=== PATIENT | female | born 1995 | race Caucasian/White ===

== ENCOUNTER 2023-12-18 20:28 | Outpatient (REF) | payer OTHER, SELFPAY ==
[2023-12-24 16:11] LABS: Age Gdln ACOG Testing Note (.); IGP, rfx Aptima HPV ASCU Note (.)
== END 2023-12-18 20:29 | disposition home or self-care (01) ==
LOC: LAB 20:28
PROVIDERS: Visit Provider Obstetrics & Gynecology
DX: Z01.419 Encounter for gynecological examination (general) (routine) without abnormal findings (principal)
CPT/HCPCS: G0145

== ENCOUNTER 2024-07-10 13:22 | Outpatient (RCR) | payer OTHER, SELFPAY ==
[2024-07-10 14:41] LABS: HCG Quantitative <1 mIU/mL
== END 2024-08-04 10:42 | disposition home or self-care (01) ==
LOC: LAB 13:22
PROVIDERS: Visit Provider Obstetrics & Gynecology
DX: Z32.01 Encounter for pregnancy test, result positive (principal); N92.6 Irregular menstruation, unspecified
CPT/HCPCS: 36415; 84702

== ENCOUNTER 2024-09-01 09:26 | Emergency (ER) | payer OTHER, SELFPAY ==
[2024-09-01 09:31] VITALS: BP 121/83; PULSE 92; O2SAT 96; BMI 32.4
[2024-09-01 09:49] VITALS: TEMP 36.9
--- NOTE | 2024-09-01 09:51 | ED_ITS ---
HPI - URI/Sore Throat General Chief Complaint: Upper Respiratory Infection Stated Complaint: fever, nausea/vomiting Time Seen by Provider: 09/01/24 09:41 Source: patient Limitations: no limitations History of Present Illness HPI Narrative: 28-year-old female presents to the emergency department for 5-day history of cough and congestion. Other family members are not ill. She did not have an influenza vaccination this year. She is not sure when her last period was, she thinks she might be late. She is also had some nausea. Related Data Home Medications ?Medication ?Instructions ?Recorded ?Confirmed metformin 500 mg tablet 500 mg PO DAILY 09/01/24 09/01/24 Allergies Allergy/AdvReac Type Severity Reaction Status Date / Time No Known Drug Allergies Allergy Verified 09/01/24 09:35 Review of Systems ROS Narrative A ten point review of systems is negative except as noted above. PFSH PFSH Social History Little interest or pleasure in doing things: not at all Feeling down, depressed, or hopeless: not at all Exam Narrative Exam Narrative: Nurses note and vital signs reviewed and patient is not hypoxic. General: The patient appears well and in no apparent distress. Patient is resting comfortably on cart. Skin: Warm, dry, no pallor noted. There is no rash noted. Head: Normocephalic, atraumatic Eye: Normal conjunctiva, no drainage Ears, Nose, Mouth, and Throat: oral mucosa is moist. Nares patent. Cardiovascular: Regular Rate and Rhythm Respiratory: Patient is in no distress, no accessory muscle use, lungs are clear to auscultation, no wheezing, rales or rhonchi Back: non-tender, no CVA tenderness bilaterally to percussion. GI: Soft and nontender Musculoskeletal: The patient has no evidence of calf tenderness, no pitting edema, symmetrical pulses noted bilaterally Neurological: A&O, normal speech Psychiatric: Cooperative Constitutional Vital Signs, click to edit/add: Last Vital Signs Temp 98.5 F 09/01/24 09:49 Pulse 92 H 09/01/24 09:31 Resp 16 09/01/24 09:31 BP 121/83 09/01/24 09:31 Pulse Ox 96 09/01/24 09:31 O2 Del Method Room Air 09/01/24 09:31 Course Vital Signs Vital signs: Vital Signs Pulse Rate 92 H 09/01/24 09:31 Respiratory Rate 16 09/01/24 09:31 Blood Pressure 121/83 09/01/24 09:31 Pulse Oximetry 96 09/01/24 09:31 Oxygen Delivery Method Room Air 09/01/24 09:31 Temperature 98.5 F 09/01/24 09:49 Pulse Rate 92 H 09/01/24 09:31 Respiratory Rate 16 09/01/24 09:31 Blood Pressure 121/83 09/01/24 09:31 Pulse Oximetry 96 09/01/24 09:31 Oxygen Delivery Method Room Air 09/01/24 09:31 MDM - URI/Sore Throat MDM Narrative Medical decision making narrative: COVID and influenza tests are negative. She is not and there is no evidence of UTI. My clinical impression is that she has a viral illness. Treatment diagnosis and follow-up were discussed with the patient. Lab Data Attestation: I reviewed the patient's lab results. Labs: Lab Results 09/01/24 09/01/24 Range/Units 09:42 10:05 Urine Color Yellow (YELLOW) Urine Clarity Clear (CLEAR) Urine pH 6.0 (5.0-9.0) Ur Specific [place] 1.020 (1.005-1.025) Urine Protein 100 A (NEG/TRACE) mg/dL Urine Glucose (UA) Negative (NEGATIVE) mg/dL Urine Ketones Trace A (NEGATIVE) mg/dL Urine Occult Blood Trace-i (NEGATIVE) Urine Nitrite Negative (NEGATIVE) Urine Bilirubin Negative (NEGATIVE) Urine Urobilinogen 0.2 (0.2-1.0) EU/dL Ur Leukocyte Esterase Negative (NEGATIVE) Urine RBC 0-2 (0-2) #/HPF Urine WBC None seen (NONE SEEN) #/HPF Ur Squamous Epith Cells Moderate A (NONE/RARE) #/LPF Urine Crystals None seen (None Seen) #/HPF Urine Bacteria Small A (NONE SEEN) #/HPF Urine Casts None seen (NONE SEEN) #/LPF Urine Mucus Moderate A (NONE SEEN) Ur Culture Indicated? Yes Urine HCG, Qual Negative (NEGATIVE) Influenza Type A Ag Negative Influenza Type B Ag Negative SARS-CoV-2 Ag (CV2AG) Negative (NEGATIVE) Discharge Plan Discharge Chief Complaint: Upper Respiratory Infection Clinical Impression: Viral URI Patient Disposition: Home, Self-Care Time of Disposition Decision: 10:39 Condition: Good Mode of Transportation: Private Vehicle Prescriptions / Home Meds: No Action metformin 500 mg tablet 500 mg PO DAILY Print Language: Lithuanian Instructions: Upper Respiratory Infection (ED) Referrals: Physician,Non-Staff, MD [Primary Care Provider] - 1 week
--- OUTSIDE RECORDS SUMMARY | 2024-09-01 09:59 | XMS_ITS | CCD ---
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 Operator Name Role Phone HUMBERTO MILLAN Unavailable Unavailable HUMBERTO MILLAN Unavailable Unavailable CASH, DR WALTER Admitting Unavailable CASH, DR WALTER Attending Unavailable MISC, DR OGDEN Primary Care Unavailable CASH, DR WALTER Consulting Unavailable CASH, DR WALTER Admitting Unavailable CASH, DR WALTER Attending Unavailable MISC, DR OGDEN Primary Care Unavailable CASH, DR WALTER Consulting Unavailable CASH, DR WALTER Admitting Unavailable CASH, DR WALTER Attending Unavailable MISC, DR OGDEN Primary Care Unavailable CASH, DR WALTER Consulting Unavailable ZIEBER, DR ZHENG Colón Consulting Unavailable BUNTING, DR REN Admitting Unavailable BUNTING, DR REN Attending Unavailable MISC, DR OGDEN Primary Care Unavailable BUNTING, DR REN Consulting Unavailable Ban Ontiveros Unavailable JOSE ANGEL MORTENSEN Attending Unavailable ONEALASHU Attending Unavailable Mikal Bain Primary Care Provider [phone] Medications Current Medications Medication Drug Class(es) Dates Sig (Normalized) Sig (Original) metFORMIN hydrochloride 500 mg oral tablet (1 source) Biguanide Start: 06-29-20 24 End: 09-27-19 25 take 1 tablet by mouth at mealtime metFORMIN (Glucophage) 500 MG tablet Indications: Encounter for weight management Take 1 tablet (500 mg) by mouth in the morning. Take with meals. 30 tablet 2 06/29/2024 09/27/2024 Active methylPREDNISolone 4 mg oral tablet (1 source) Corticosteroid Start: 08-18-19 methylPREDNISolone 4 MG as directed Orally Once a day for 6 days Aug, Active phentermine hydrochloride 37.5 mg oral tablet (1 source) Sympathomimetic Amine Anorectic Start: 03-23-20 take 1 tablet by mouth before mealtime phentermine (Adipex-P) 37.5 MG tablet Indications: Encounter for weight management Take 1 tablet (37.5 mg) by mouth in the morning. Take before meals. 30 tablet 03/23/2024 Active valACYclovir 500 mg oral tablet (1 source) Herpesvirus Nucleoside Analog DNA Polymerase Inhibitor, Herpes Simplex Virus Nucleoside Analog DNA Polymerase Inhibitor, Herpes Zoster Virus Nucleoside Analog DNA Polymerase Inhibitor Start: 06-29-20 take 1 tablet by mouth once daily valACYclovir (Valtrex) 500 MG tablet Indications: Herpesviral infection Take 1 tablet (500 mg) by mouth Daily 30 tablet 06/29/2024 Active Problems Active Problems Problem Classification Problem Date Documented Date Episodic/Chronic Hypertension complicating ; childbirth and the puerperium (1 source) Unspecified maternal hypertension, third trimester; Translations: [Unspecified maternal hypertension, third trimester] Onset: 01-25-2017 Chronic Immunizations and screening for infectious disease (2 sources) Encounter for screening for human papillomavirus (HPV); Translations: [Contact with and (suspected) exposure to other viral communicable diseases] Onset: 10-10-2021 Episodic Malaise and fatigue (4 sources) Other fatigue; Translations: [OTHER FATIGUE] Onset: 09-08-2022 Episodic Menstrual disorders (4 sources) Irregular menstruation, unspecified; Translations: [IRREGULAR MENSTRUATION UNSPECIFIED] Onset: 04-19-2022 Chronic Other aftercare (1 source) Other longterm (current) drug therapy; Translations: [OTH SHELTER CURRENT DRUG THERAPY] Onset: 09-09-2022 Episodic Other upper respiratory infections (3 sources) Acute pharyngitis, unspecified; Translations: [Acute pharyngitis due to other specified organisms] Onset: 09-09-2022 Episodic Unclassified (1 source) 32 weeks gestation of ; Translations: [32 weeks gestation of ] Onset: 01-25-2017 Unclassified (4 sources) Unspecified lump in the right breast, overlapping quadrants; Translations: [UNS LUMP RT BREAST OVRLPNG QUADRNTS] Onset: 10-20-2021 Past or Other Problems Problem Classification Problem Date Documented Da te Episodic/Chronic Other screening for suspected conditions (not mental disorders or infectious disease) (4 sources) Encounter for screening for malignant neoplasm of cervix; Translations: [ENC SCREENING MALIG NEOPLASM CERV] Onset: 10-09-2021 Episodic Results Test Name Value Interpretation Reference Range Facility [facility] PREG QUANT HCGon 024 HCG QUANTITATIVE <1 mIU/mL [facility] Comment on above: 5-50 0.2-1 WEEK 50-500 1-2 WEEKS 100-5,000 2-3 WEEKS 500-10,000 3-4 WEEKS 1,000-50,000 4-5 WEEKS 10,000-100,000 5-6 WEEKS 15,000-200,000 6-8 WEEKS 10,000-100,000 2-3 MONTHS [facility] CBC AUTO DIFFon 09-08-2022 BASO # 0.0 103/ul Normal 0.0-0.1 [facility] Comment on above: Performed By: #### C BC #### [facility] [address] [address] [address] Sigifredo Valdez Basophils/100 WBC (Bld) 0.4 % Normal 0.2-2.0 [facility] Comment on above: Performed By: #### C BC #### [facility] [address] [place] [address] Dr. Sigifredo Valdez EO # 0.2 103/ul Normal 0.0-0.7 [facility] Comment on above: Performed By: #### C BC #### [facility] [address] [address] [address] Sigifredo Valdez Eosinophils/100 WBC (Bld) 3.1 % Normal 0.9-7.0 [facility] Comment on above: Performed By: #### C BC #### [facility] [address] [address] [address] Sigifredo Valdez Erythrocyte distribution width (RBC) [Ratio] 13.2 % Normal 11.0-15.0 [facility] Comment on above: Performed By: #### C BC #### [facility] [address] [place] [address] Dr. Sigifredo Valdez Hematocrit (Bld) [Volume fraction] 44.8 % Normal 36.0-48.0 [facility] Comment on above: Performed By: #### C BC #### [facility] [address] [place] [address] Dr. Sigifredo Valdez Hemoglobin (Bld) [Mass/Vol] 14.0 g/dL Normal 12.0-16.0 [facility] Comment on above: Performed By: #### C BC #### [facility] [address] [place] [address] Dr. Sigifredo Valdez IG # 0.03 10e3/ul Normal 0.00-0.03 [facility] Comment on above: Performed By: #### C BC #### [facility] [address] [place] [address] Dr. Sigifredo Valdez IG % 0.4 % Normal 0.0-0.5 [facility] Comment on above: Performed By: #### C BC #### [facility] [address] [place] [address] Dr. Sigifredo Valdez LYMPH # 2.3 103/ul Normal 1.2-3.8 [facility] Comment on above: Performed By: #### C BC #### [facility] [address] [place] [address] Dr. Sigifredo Valdez Lymphocytes/100 WBC (Bld) 31.6 % Normal 20.5-60.0 [facility] Comment on above: Performed By: #### C BC #### [facility] [address] [place] [address] Dr. Sigifredo Valdez MANUAL DIFF REQ NO Normal [facility] Comment on above: Performed By: #### C BC #### [facility] [address] [place] [address] Dr. Sigifredo Valdez MCH (RBC) [Entitic mass] 27.1 pg Normal 26.7-34.0 [facility] Comment on above: Performed By: #### C BC #### [facility] [address] [place] [address] Dr. Sigifredo Valdez MCHC (RBC) [Mass/Vol] 31.3 g/dL Normal 29.9-35.2 [facility] Comment on above: Performed By: #### C BC #### [facility] [address] [place] [address] Dr. Sigifredo Valdez MCV (RBC) [Entitic vol] 86.7 fL Normal 81.0-99.0 [facility] Comment on above: Performed By: #### C BC #### [facility] [address] [place] [address] Dr. Sigifredo Valdez MONO # 0.6 103/ul Normal 0.3-0.8 [facility] Comment on above: Performed By: #### C BC #### [facility] [address] [place] [address] Dr. Sigifredo Valdez Monocytes/100 WBC (Bld) 7.7 % Normal 1.7-12.0 [facility] Comment on above: Performed By: #### C BC #### [facility] [address] [place] [address] Dr. Sigifredo Valdez NEUT # 4.1 103/ul Normal 1.4-6.5 [facility] Comment on above: Performed By: #### C BC #### [facility] [address] [place] [address] Dr. Sigifredo Valdez Neutrophils/100 WBC (Bld) 56.8 % Normal 43.0-75.0 [facility] Comment on above: Performed By: #### C BC #### [facility] [address] [place] [address] Dr. Sigifredo Valdez Platelet mean volume (Bld) [Entitic vol] 9.0 fL Critically low 9.5-13.5 [facility] Comment on above: Performed By: #### C BC #### [facility] [address] [place] [address] Dr. Sigifredo Valdez PLT 400 103/ul Normal 150-450 [facility] Comment on above: Performed By: #### C BC #### [facility] [address] [place] [address] Dr. Sigifredo Valdez RBC 5.17 106/ul Normal 4.20-5.40 [facility] Comment on above: Performed By: #### C BC #### [facility] [address] [place] [address] Dr. Sigifredo Valdez WBC 7.1 103/ul Normal 4.0-11.0 [facility] Comment on above: Performed By: #### C BC #### [facility] [address] [place] [address] Dr. Sigifredo Valdez FREE T4on 09-08-2022 Free T4 [Mass/Vol] 1.12 ng/dL Normal 0.76-1.46 [facility] Comment on above: Performed By: #### F T4 #### [facility] [address] [place] [address] Dr. Sigifredo Valdez GLYCOHEMOGLOBIN A1Con 2022 ADA RECOMMENDATION SEE BELOW Normal [facility] Comment on above: Result Comment: ADA RECOMMENDED LIMIT 4.0 - 6.0 ADA THERAPEUTIC TARGET < 7.0 ACTION SUGGESTED > 7.0 Performed By: #### A 1C #### [facility] [address] [place] [address] Dr. Sigifredo Valdez Glucose [Mass/Vol] 103 mg/dL Normal [facility] Comment on above: Performed By: #### A 1C #### [facility] [address] [place] [address] Dr. Sigifredo Valdez HbA1c (Bld) [Mass fraction] 5.2 % Normal 4.5-6.2 [facility] Comment on above: Performed By: #### A 1C #### [facility] [address] [place] [address] Dr. Sigifredo Valdez MONOon 09-08-2022 Monocytes (Bld) [#/Vol] Negative Normal NEGATIVE [facility] Comment on above: Performed By: #### M JAME #### [facility] [address] [place] [address] Dr. Sigifredo Valdez PROF 14(COMP METB)on 023 Albumin [Mass/Vol] 3.4 g/dL Normal 3.4-5.0 [facility] Comment on above: Performed By: #### T SH, CMP #### [facility] [address] [place] [address] Dr. Sigifredo Valdez Albumin/Globulin [Mass ratio] 0.9 {ratio} Normal [facility] Comment on above: Performed By: #### T SH, CMP #### [facility] [address] [address] [address] Sigifredo Valdez ALP [Catalytic activity/Vol] 55 U/L Normal 46-116 [facility] Comment on above: Performed By: #### T SH, CMP #### [facility] [address] [address] [address] Sigifredo Valdez ALT [Catalytic activity/Vol] 25 U/L Normal 14-59 [facility] Comment on above: Performed By: #### T SH, CMP #### [facility] [address] [address] [address] Sigifredo Valdez Anion gap [Moles/Vol] 9.7 mmol/L Normal [facility] Comment on above: Performed By: #### T SH, CMP #### [facility] [address] [place] [address] Dr. Sigifredo Valdez AST [Catalytic activity/Vol] 15 U/L Normal 15-37 [facility] Comment on above: Performed By: #### T SH, CMP #### [facility] [address] [place] [address] Dr. Sigifredo Valdez Bilirubin [Mass/Vol] 0.3 mg/dL Normal 0.2-1.0 [facility] Comment on above: Performed By: #### T SH, CMP #### [facility] [address] [place] [address] Dr. Sigifredo Valdez Calcium [Mass/Vol] 8.7 mg/dL Normal 8.5-10.1 [facility] Comment on above: Performed By: #### T SH, CMP #### [facility] [address] [place] [address] Dr. Sigifredo Valdez Chloride [Moles/Vol] 104 mmol/L Normal 98-107 [facility] Comment on above: Performed By: #### T SH, CMP #### [facility] [address] [address] [address] Sigifredo Valdez CO2 [Moles/Vol] 30.1 mmol/L Normal 21.0-32.0 [facility] Comment on above: Performed By: #### T SH, CMP #### [facility] [address] [address] [address] Sigifredo Valdez Creatinine [Mass/Vol] 0.66 mg/dL Normal 0.55-1.02 [facility] Comment on above: Performed By: #### T SH, CMP #### [facility] [address] [address] [address] Sigifredo Valdez EGFR-AF PARAGUAYAN >60 Normal >=60 [facility] Comment on above: Performed By: #### T SH, CMP #### [facility] [address] [address] [address] Sigifredo Valdez EGFR-NON AF PARAGUAYAN >60 Normal >=60 [facility] Comment on above: Performed By: #### T SH, CMP #### [facility] [address] [address] [address] Sigifredo Valdez Globulin (S) [Mass/Vol] 4.0 g/dL Normal [facility] Comment on above: Performed By: #### T SH, CMP #### [facility] [address] [place] [address] Dr. Sigifredo Valdez Glucose [Mass/Vol] 90 mg/dL Normal 74-106 [facility] Comment on above: Performed By: #### T SH, CMP #### [facility] [address] [place] [address] Dr. Sigifredo Valdez Potassium [Moles/Vol] 3.8 mmol/L Normal 3.5-5.1 [facility] Comment on above: Performed By: #### T SH, CMP #### [facility] [address] [place] [address] Dr. Sigifredo Valdez Protein [Mass/Vol] 7.4 g/dL Normal 6.4-8.2 [facility] Comment on above: Performed By: #### T SH, CMP #### [facility] [address] [place] [address] Dr. Sigifredo Valdez Sodium [Moles/Vol] 140 mmol/L Normal 136-145 [facility] Comment on above: Performed By: #### T SH, CMP #### [facility] [address] [address] [address] Sigifredo Valdez Urea nitrogen [Mass/Vol] 10.0 mg/dL Normal 7.0-18.0 [facility] Comment on above: Performed By: #### T SH, CMP #### [facility] [address] [address] [address] Sigifredo Valdez Urea nitrogen/Creatinine [Mass ratio] 15.2 mg/mg Normal [facility] Comment on above: Performed By: #### T SH, CMP #### [facility] [address] [place] [address] Dr. Sigifredo Valdez TSHon 09-08-2022 TSH 0.941 uIU/mL Normal 0.358-3.740 [facility] Comment on above: Performed By: #### T SH, CMP #### [facility] [address] [place] [address] Dr. Sigifredo Valdez COVID/FLU/RSV RT-PCRon 08-18 SARS-CoV-2 (COVID-19) RNA SARAH+probe Ql (Unsp spec) Negative [facility] [employer] Other COVID/FLU/RSV RT-PCR Negative [employer] [facility] [employer] Other Quick Strepon 08-18-2022 S. pyogenes Org specific cx Ql (Throat) Negative [facility] [employer] Other Quick Strep [employer] [facility] [employer] Other PREG QUANT HCGon 04-19-2022 HCG QUANT <1 Normal [facility] Comment on above: Performed By: #### P REGQNT #### [facility] [address] [place] [address] Dr. Sigifredo Valdez HCG RANGE SEE BELOW Normal [facility] Comment on above: Result Comment: 5-50 0.2-1 WEEK 50-500 1-2 WEEKS 100-5,000 2-3 WEEKS 500-10,000 3-4 WEEKS 1,000-50,000 4-5 WEEKS 10,000-100,000 5-6 WEEKS 15,000-200,000 6-8 WEEKS 10,000-100,000 2-3 MONTHS Performed By: #### P REGQNT #### [facility] [address] [address] [address] Sigifredo Valdez MG MAMM DIAGNOSTIC 3D CYNTHIA CA Don 10-20-2021 MG MAMM DIAGNOSTIC 3D CYNTHIA CAD Patient: ROBER CUELLAR Exam Date: 10/20/2021 : 1995 Gender:F Ordering : DR JOSE ANGEL MORTENSEN . Admission #: [id number] Family : Order #: [id number] CLICK HERE TO VIEW EXAM RADIOLOGY REPORT PROCEDURE: MAMMOGRAM DIAGNOSTIC 3D BILATERAL CAD, 10/20/2021, 09:58 ULTRASOUND BREAST RIGHT LIMITED, 10/20/2021, 10:59 COMPARISON: None. INDICATIONS: Palpable lump 6 o'clock right breast. Calculator Name NCI Breast Cancer Risk Assessment Tool 5 Year Breast Cancer Risk Not Applicable. Lifetime Breast Cancer Risk Not Applicable. Personal Breast Cancer No Personal Ovarian Cancer No Treatments None Family Cancers Aunt-paternal with breast cancer at age 55; Grandmother-maternal with lung cancer at age 60. LOCATION: [facility] BREAST COMPOSITION: Heterogeneously dense,which may obscure small masses. FINDINGS: DIAGNOSTIC CATEGORY 2--BENIGN FINDING: RIGHT BREAST: A skin surface marker localizes the patient's palpable lump to approximately the 6 o'clock position. No mammographic abnormality. Ultrasound evaluation in the 6 o'clock region demonstrates normal appearing fibroglandular tissue. No suspicious findings. LEFT BREAST: No significant suspicious finding. RECOMMENDATIONS: ROUTINE MAMMOGRAM AND CLINICAL EVALUATION IN 12 MONTHS. PLEASE NOTE: A NORMAL MAMMOGRAM DOES NOT EXCLUDE THE POSSIBILITY OF BREAST CANCER. A CLINICALLY SUSPICIOUS PALPABLE LUMP SHOULD BE BIOPSIED. Dictated by: Zheng Dickinson M.D. on 10/20/2021 at 15:27 Approved by: Zheng Dickinson M.D. on 10/20/2021 at 15:30 Normal [facility] US BREAST RIGHT LIMITEDon US BREAST RIGHT LIMITED Patient: ROBER CUELLAR Exam Date: 10/20/2021 : 1995 Gender:F Ordering : DR JOSE ANGEL MORTENSEN . Admission #: [id number] Family : Order #: [id number] CLICK HERE TO VIEW EXAM RADIOLOGY REPORT PROCEDURE: MAMMOGRAM DIAGNOSTIC 3D BILATERAL CAD, 10/20/2021, 09:58 ULTRASOUND BREAST RIGHT LIMITED, 10/20/2021, 10:59 COMPARISON: None. INDICATIONS: Palpable lump 6 o'clock right breast. Calculator Name NCI Breast Cancer Risk Assessment Tool 5 Year Breast Cancer Risk Not Applicable. Lifetime Breast Cancer Risk Not Applicable. Personal Breast Cancer No Personal Ovarian Cancer No Treatments None Family Cancers Aunt-paternal with breast cancer at age 55; Grandmother-maternal with lung cancer at age 60. LOCATION: [facility] BREAST COMPOSITION: Heterogeneously dense,which may obscure small masses. FINDINGS: DIAGNOSTIC CATEGORY 2--BENIGN FINDING: RIGHT BREAST: A skin surface marker localizes the patient's palpable lump to approximately the 6 o'clock position. No mammographic abnormality. Ultrasound evaluation in the 6 o'clock region demonstrates normal appearing fibroglandular tissue. No suspicious findings. LEFT BREAST: No significant suspicious finding. RECOMMENDATIONS: ROUTINE MAMMOGRAM AND CLINICAL EVALUATION IN 12 MONTHS. PLEASE NOTE: A NORMAL MAMMOGRAM DOES NOT EXCLUDE THE POSSIBILITY OF BREAST CANCER. A CLINICALLY SUSPICIOUS PALPABLE LUMP SHOULD BE BIOPSIED. Dictated by: Zheng Dickinson M.D. on 10/20/2021 at 15:27 Approved by: Zheng Dickinson M.D. on 10/20/2021 at 15:30 [facility] PAP ACOG PANEL 2: 21 to 29on 10-13-2021 . . Normal [facility] Comment on above: Performed By: #### [id number] #### [facility] [address] [address] [address] Sigifredo Valdez Age Gdln ACOG Testing 21- Normal [facility] Comment on above: Performed By: #### [id number] #### [facility] [address] [address] [address] Sigifredo Valdez DIAGNOSIS: Comment Normal [facility] Comment on above: Result Comment: NEGA TIVE FOR INTRAEPITHELIAL LESION OR MALIGNANCY. CELLULAR CHANGES ASSOCIATED WITH INFLAMMATION ARE PRESENT. Performed By: #### [id number] #### [facility] [address] [address] [address] Sigifredo Valdez Methodology: CTIM Normal [facility] Comment on above: Result Comment: The [employer] Senior Business Architect was unable to read this specimen. Therefore a manual review was performed. Performed By: #### [id number] #### [facility] [address] [place] [address] Dr. Sigifredo Valdez Note: Comment [facility] Comment on above: Result Comment: The Pap smear is a screening test designed to aid in the detection of premalignant and malignant conditions of the uterine cervix. It is not a diagnostic procedure and should not be used as the sole means of detecting cervical cancer. Both false-positive and false-negative reports do occur. . Performed By: #### [id number] #### [facility] [address] [place] [address] Dr. Sigifredo Valdez Performed by: Comment Normal [facility] Comment on above: Result Comment: Delia Shook, Juvenile Court Liaison (ASCP) Performed By: #### [id number] #### [facility] [address] [place] [address] Dr. Sigifredo Valdez Reflex Criteria: Comment Normal [facility] Comment on above: Result Comment: The HPV DNA reflex criteria were not met with this specimen result therefore, no HPV testing was performed. . Performed By: #### [id number] #### [facility] [address] [place] [address] Dr. Sigifredo Valdez Specimen adequacy: Comment Normal [facility] Comment on above: Result Comment: Sati sfactory for evaluation. Endocervical and/or squamous metaplastic cells (endocervical component) are present. Performed By: #### 4 [id number] #### [facility] [address] [place] [address] Dr. Sigifredo Valdez Auth for Release of Medical Recordson 01-03-2021 Auth for Release of Medical Records [id number] #[id number]:127 Normal [facility] Ambulatory Clinical Summaryo n 12-29-2020 Ambulatory Clinical Summary {[id number] [facility] Obstetrics Office/Clinic Not massiel 12-29-2020 Obstetrics Office/Clinic Note Chief Complaint OB 27w 4d, baby moving Obstetric History History (0,0,3,1) # 1 Baby 1 Outcome Date: 2010 Outcome: Outcome or Result: Spontaneous Gender: -- Gest Age: 8 weeks Wt: -- Hospital: [facility]: -- Child's Name: -- Baby's Father: -- # 2 Baby 1 Outcome Date: 2016 Outcome: Live Outcome or Result: Gender: Male Gest Age: 32 weeks Wt: 2353 g Hospital: [facility]: -- Child's Name: -- Baby's Father: -- # 3 Baby 1 Outcome Date: 2019 Outcome: Outcome or Result: Elective Gender: -- Gest Age: 8 weeks Wt: -- Hospital: -- [facility]: -- Child's Name: -- Baby's Father: -- # 4 Baby 1 Outcome Date: 2019 Outcome: Outcome or Result: Spontaneous Gender: -- Gest Age: 8 weeks Wt: -- Hospital: [facility]: -- Child's Name: -- Baby's Father: -- EGA and NABEEL Gestational Age (EGA) and NABEEL * Note: EGA calculated as of 12/29/2020 NABEEL: 03/26/2021 EGA*: 27 weeks 4 days Type: Authoritative Method Date: 08/17/2020 Method: Ultrasound (08/17/2020) Confirmation: Confirmed Description: -- Comments: -- Entered by: Mikayla Castellano LPN on 10/03/2020 Other NABEEL Calculations for this : No additional NABEEL calculations have been recorded for this History of Present Illness ob visit Review of Systems Constitutional: No fever, No chills, No sweats, No weakness. Respiratory: No shortness of breath, No cough. Cardiovascular: No chest pain, Noperipheral edema. Physical Exam Vitals & Measurements BP: 122/70 HT: 165 cm WT: 92.2 kg WT: 92.2 kg BMI: 33.87 Examinations Glucose Urine Dipstick: Negative Protein Urine Dipstick: Negative Weight Measured: 92.2 kg Systolic Blood Pressure: 122 mmHg Diastolic Blood Pressure: 70 mmHg D-EGA at Documented Date, Time: 27W 4D Fundal Height: 29.5 cm Labor Signs/Symptoms: None Baby A - Activity: Present per patient Baby A - FHR: 140 bpm Next Appointment: 3 week(s) Antepartum Comment: nl 28wk labs; discussed weight gain General Exam: Constitutional: alert, no acute distress, well hydrated, well developed, well nourished. Skin: normal color, no rashes, no lesions, no unusual bruising. Head: atraumatic, normocephalic. Eyes: EOM intact, no nystagmus, no icterus. Ears: no external deformities, gross hearing intact. Respiratory: no respiratory distress. Abdomen: gravid, nontender. Extremities: no deformities, no edema. Psych: oriented to all spheres, affect and mood appropriate, normal interaction, good eye contact. Assessment/Plan RTC 3 wks. 1. Supervision of high risk in second trimester (O09.92: Supervision of high risk , unspecified, second trimester) Ordered: Office Visit Level 4 Est 40580 NC 2. Obesity complicating , second trimester (O99.212: Obesity complicating , second trimester) Ordered: Office Visit Level 4 Est 97757 NC 3. Maternal care for low transverse scar from previous delivery (O34.211: Maternal care for low transverse scar from previous delivery) Ordered: Office Visit Level 4 Est 64748 NC 4. Hx of preeclampsia, prior , currently (O09.299: Supervision of with other poor reproductive or obstetric history, unspecified trimester) Ordered: Office Visit Level 4 Est 05792 NC 5. HSV infection (B00.9: Herpesviral infection, unspecified) Ordered: Office Visit Level 4 Est 68061 NC 6. 27 weeks gestation of (Z3A.27: 27 weeks gestation of ) Ordered: Office Visit Level 4 Est 93411 NC Follow-up With When Contact Information Ailyn ROCHE MD In [address] [place] [address]- Additional Instructions: Problem List/Past Medical History Ongoing HSV infection Hx of preeclampsia, prior , currently Maternal care for low transverse scar from previous delivery Obesity complicating , second trimester Supervision of high risk in second trimester Historical Medications Aspirin Low Dose Multivitamins with Folic Acid 0.5 mg oral tablet, 2 tab(s), Oral, Daily Allergies No Known Medication Allergies Social History Alcohol - Denies Alcohol Use, 10/03/2020 DENIES, 10/31/2020 Substance Abuse - Denies Substance Abuse, 10/03/2020 DENIES, 10/31/2020 Tobacco - Denies Tobacco Use, 10/03/2020 Never (less than 100 in lifetime) Tobacco Use:., 11/30/2020 Family History Family history is negative Lab Results Ambulatory Point of Care Results Glucose Urine Dipstick: Negative (12/29/20 11:30:00) Protein Urine Dipstick: Negative (12/29/20 11:30:00) Normal [facility] Comment on above: Result Comment: Elec tronically Signed By: EVA PITT, Ailyn Freeman.jacy\Date and Time Signed: 12/29/20 11:51 EDT Patient Educationon 12-30-19 Patient Education Obstetrics and Gynecology Positions In the final weeks of your , your baby usually moves into a head-down (vertex) position to get ready for . As a normal delivery proceeds through the stages of labor, the baby tucks in the chin and turns to face your back. In this position, the back of your baby's head starts to show (crown) first through your open cervix. Sometimes your baby may be in a different, abnormal position just before . These positions are called malpositions or malpresentations. Giving can be more difficult if your baby is in an abnormal position. What are abnormal positions? There are five main abnormal positions: ? Occiput posterior presentation. This is the most common abnormal position. It is sometimes called the romario-side up position because your baby's face points toward your front instead of your back. ? Breech presentation. This is also common. In this position, your baby's bottom or feet are in position to come out first. ? Face or brow presentation. In this position, your baby is head down, but the face or the front of the head crowns first. ? Compound presentation. In this position, your baby's hand or leg comes out along with the head or bottom. ? Transverse presentation. In this position, your baby is lying sideways across your canal. Your baby's shoulder may come out first. Your health care provider can diagnose an abnormal position during a physical exam as your due date approaches. An abnormal position may be found by feeling your belly and by doing an internal (pelvic) exam. A sound wave imaging study ( ultrasound) can be done to confirm the abnormal position. What causes an abnormal position? In many cases, the cause for an abnormal position is not known. You may be at higher risk of having a baby in an abnormal position if: ? You have an abnormally shaped womb (uterus) or pelvis. ? You have growths in your uterus, such as fibroids. ? Your placenta is large or in an abnormal position. ? You are having twins or multiples. ? You have too much amniotic fluid. ? Your baby has some type of developmental abnormality. ? You go into early (premature) labor. How does this affect me? In some cases, your baby may move into a vertex position just before or during labor. However, an abnormal position increases your risk for a long labor or the need for steps to be taken to help ensure a safe delivery. Your health care provider may need to: ? Turn the baby manually by pushing on your belly (external cephalic version). ? Use instruments, such as forceps or a suctioning device, to help get your baby through the canal (assisted delivery). ? Deliver your baby by delivery, also called a . The exact effects on your delivery will depend on the position your baby is in right before . If your baby has an occiput posterior presentation: ? You may have to push harder and may have a longer labor. ? You may have more back pain. ? You may deliver vaginally, but you are more likely to need an assisted delivery. ? You may need a delivery. If your baby is breech: ? Your health care provider may try a vaginal delivery, but there is a risk that your baby's umbilical cord will be stretched or compressed and your baby will not get enough oxygen. ? In most cases, you will need a delivery. If your baby is in a face or brow presentation: ? Your labor may be longer. ? You may be able to have a vaginal or assisted vaginal delivery. ? There is a uyuzbo-clab-xpnmcl risk that you will need a delivery. If your baby is in a compound presentation: ? Your health care provider may be able to change your baby's position manually. ? In most cases, this position requires a delivery. If your baby is in a transverse presentation: ? Your health care provider may be able to turn your baby manually. ? In most cases, this position requires a delivery. How does this affect my baby? Most babies are not affected by an abnormal position, but there is a higher risk of some complications, including: ? Swelling and bruising. ? injuries. ? Not getting enough oxygen during . Summary ? The normal position for is head down and facing toward your back (vertex position). ? Abnormal positions include occiput posterior, breech, face or brow presentation, compound presentation, and transverse position. ? In some cases, your baby may move into a normal position before , or your health care provider may be able to change your baby's position manually. ? If your baby is in an abnormal position at the time of , you have a greater risk of a longer labor, assisted delivery, and delivery. This information is not intended to replace advice given to (more content not included)... Normal [facility] Coding Summary.on 12-22-2020 Coding Summary. [id number] Gh0bWw+PGhlYWQ+PE1FV AImD23ncRFyjL4VT3cQR Y6WPTSNSSFOUA0PYK6uq ZM0WEvcA8VjhdHq GswtdMMiUL94JCo6ZOA5 jYuvRYuiiN0ptZFsY3c7 GePpAJ72zN41CUpkLHAq ZnS2RvShxgtpaGQm C1roDoWktUMbLcr+PHRh YmxlIHdpZHRoPScxMDAl IiVcuNkzAS3mGo0bLHAa LWNvbGxhcHNlOiBj h0wqCQVrCIkxSB8rsCqv C4GjdNF6QKEzo8k1Os19 dHI+VOByANI4wFecEDvr w858PtJev3spSUL7 aJJaWRylSCU1N45di0U7 COLjJCVuYBB6oVA2gT0j oHifhejuS6ZubXOiQpB8 YDK5oYSimM4xhTmb nafsvF5lQzf+M34KBP8L MMHDVB3IOjb3Y4UyWrvb dHI+MY21UQKtGN00qVJn oQNag4ubuHr9IaEz OMTvRWR0uTxbYAzlo2Zh QLZmO46enMGpl3M5QMVl wTftpIGbNoMflFU9uS8q USrbeevgm3izkjch Axjuy8flzz57aO78C23y CPtsGADzWSM2ZWUqIOLc sEczjw0zuM8lLj5+IDxj n6rte4xtvUk7GdWl SQOozdMwpMtzKXS8f3Bb De62V5HklFobn9DjNre2 im17oMWrt0L4pHA5FBjz OBFocQ1pWIzdVzL1 BMRlJeDjyB68wSJrGEep Rh2fjFiozEchEH5qJSXs hgugZWJgxB3cWLVfgMRa dLuwOV5aPNJsmnbd t506CkYjDQB9RQQvrXHa H3JblV7pTnVsIHGiJAFh A5WrmVYqDLiuF346BMkm BfW3LBBjtbYtL8Ax WGBedElgReP4t4H2Ju6T n0CbqzeeUDG1NKujZME7 BcL3XmPmByU7O2PcPjw6 FCVncGvrCY8xA3Ub VZQeafarhdolrLW5KHBb QEHqjC42iWEwGKehQg0w o2U2d787YVWlKONmcV30 Si8ioEfjJPEryRBE xP5ageqeb1vedjrlCtEe MHLbEWr0LAl4ALCtkOvn NgIdFSD2FjG2RBA4nYZl dZ3ovXeszhookI3e Oyc+O67eoF0zEXS3MXI7 nhudOJFzrdNeHF16DI88 Q1TrHwlmnWMyuQS+PGRp jxCbpLquLG8pBxGv t7inn0FmUXseZ6BkLOMk MCcxJhw3PGBeMIG8wMG1 jT0nDROlXVpba3V9wIO4 X7PamhNfjy1xo8ez PNEpKEgjA44vbNIzh0P9 HULczIK1KAAdaDzhFtFz iX03Lgx+GSIndXcpx0Is Buhcv2irj2ffkFx8 IjMwJSIgdmFsaWduPSJ0 e6AdHs26Q24sCIxiMIUs IFOdDHHoSQWusSnien2b bR3uVg7+PGNvbCB3 qYX0rD8lYUZxWnD4GFsb V845CzIibDNxBizrn0lb w1wcpKl6ErBcBEGjydXf bJpvITA8i7FkMm58 L98rMIcxSTIiAXFjPFBy RNRnwLvlup9shK9sWk6+ IH3vm1nucl59zO10sZV+ KQNpVKM5hCfoNHkn YFYhaS3mNYmyVtZ3GQLh ZeImlH58cUOwHBqsNy4m fKmixKkuLP7wAHPbdvlj c522MpSfq9ieMAKb sUIeXHtjMYQ8A15fi0R2 YXAhTCWiXFE1tJX8hY4z bGlnbjogbGVmdDsgdmVy rKvjVXbiVSdhL601 IHRvcDsnPlBhdGllbnQg TgNkMPd4P4JmZfu6IVEm pSxbAC9bqEWfLAzsPp5l zLqluKtdLE4dTMMw edxab885EaCnb3daNQRw oTXdKXcdJMX8L20yd0J4 GSLdQTGkWMK1rSV5xG3d bGlnbjogbGVmdDsg eqFlmSrhRBitUBdbC974 IHRvcDsnPkJpcnRoIERh bFH8YK15LN64uGVbm5H0 xZT5I8YcMFGajtii cbuosHI5EBQxECEdlI88 Zi5slBveEz8uKOBzJAT3 QRBkkTOvJ9IzgI9rKbDn WWGdIXRxP7JouHRm XZovT532MIofTlH4INHn znMlP0EcJIElcQnaLuZ6 n1J2Em0XA3S5XG33ZO75 tJKjg0U2fFH0Q3Yp IXBrddihshcwoJW6HZIi IPPddJ39Ma4sqVuqVl8w WYQqDAX5PWOtwHPoX3Ov dX4pGzNiNOLvPTIb T2RitDEwMOzqS348IYmr NdF4BSEutsViR2VpZJTo qWvaRqO2g2I8Nz3UYUv4 WM11ZK00sOMfl9U5 yTW2P5ZiKLPnmgpzkkzo fRN7AZFsZNVynZ19Wm2k kExvId4dMLErGOV4OYLs qDFjN5SwvZ7zXuAy LRDiDBEcE1ZaeZTkOGcf F666WMhnVgS5TOThkpYc A7ZvUGFjwJuiFsH7d0W3 Au1QXABvML53WJS4 rIA6LX92PT00K1PzXxzi dGFibGU+PHRhYmxlIHdp ZHRoPScxMDAlJyBzdHls ZZ6hMn7gJSJxNWXg wGamrSZsCaMgj1xqLCIm URwcYQ5jfYdsG8NlcDB4 DBFjp8e1Le20G48yC6Fl dXA+CVWmdUF4wAJ1 iH2yMmTpFmW3TZrmK733 LqHakQQmRolef4rju4ay eNa7OyT5OXWxrjXgnJev GRB6b2TqQd69K27b IHdpZHRoPSIxNSUiIHZh dLszug0iaC2wMj3+PGNv lRP4mBI5jE8dXkJwFnG4 GCxjX776MdRpaUFd Nsotm5pao4cowWv0MeLg CBOqagOjoGqvBBP5l6Lj Ac25O2HouDlum2LzVqd3 of26lNOes0E2rMR3 R2JkOBUbvuxyuYUmmUya MZ3fCXMryttqWAWvwG1a WRCeG8c2HaZfDvY7LQkc Q2KhznY8NMWejIPy CPszTDU9N92vk1C6NJYk EWOwFHW2jBH0wC8vcAij bjogbGVmdDsgdmVydGlj QZvfHPdbT162MBGg jYgjUUKsiD9uGOXtbPBd nGlwHG3nKASxozzkErnQ ZdISFRiuBY2FD0IBVHG3 E9QuJra6LZRrzLyg VA3myMWnBCmdBq5woYhl vFjqGP8nTUQfelzhZXGq qJ2pEUBwcBZlqUfvSU2h FAWnaxzng828NaAo BUV8KERgyMHsO7MalB3q VvDiBTEaAIQbY3YdgKHy QXfkF462UZovOaL0OUYi oxIaL0TwEEIhmVkp BjQ8u5P7Pm3cGI7iOb5g RGn2MK55TC44cFPdo6F0 oQM4U9MdOKPblayzeqdj nLV9CBBuPDVfiV55 hQBsHQaqQs0vt0J0h982 TMLpBVAaqU04Qj6qkLgh FJZizNZFpH6dcnsyh4sf cjogIzAwMDAwMDt0 ODq2SUMyxSqeFvBbWQD5 QlL9SRA7oJYqsU3fhUny bscteL2ePkw+MjUgWWVh xpG9L0KnTfk7PZGg vMqoNU7qeBEwOLpnQe8x sGltuNumAT9kKNJhtbyz WEPcqU2kFLJgkDKmsOdh FO8sFAYftizcs849 ZnOnGII4JGKgtYWwE0Ee dW0kUxFmBQYmPHVoR0Ld eKKaPUxrH503UMgfVuK4 KKSthgJpN8PuGADu kSvdCgT4d2Q7Lz6IEN4s zVZ8X8PkGoj1JWOsiHco AI2wpAJnTIvcId6ndJrp uClaAI7mRMAfpjkm CCJygG5yFKZjhJQqlDfp NA6eESBcgtbbq491PsHv WYE5NDIagPHhF8WrcO3r YoNlBUJhIHKxW6Iu xUQvOHbxC007VLhkUjH9 SZQbufXpU8QgKTUhuRfz LsY8i1W0Nv4KlJOhSWZj RP51NF79WY48C2Yx PjwvdGFibGU+PHRhYmxl IHdpZHRoPScxMDAlJyBz zDmgGY7rGd3hOPMcSHCr mEavkJAcIjJub5ft UMEzMPfhBU3scZlmP8Va rWN0TDLjy0w9Jx99V62e D7MdqIA+FWBvhWO9nUJ4 uQ3iQoVvGkA1FEzo W439LsWeaJHfMicma8qu s2iueGf5MdHtFPMxqnQj yBpiNGS6s0VqOj50K97f IHdpZHRoPSIyMCUi XVEqjEsnxh0djZ2mCn3+ YWGveRE9gMC5kB4uUdZv HnD6EFxkB919ClQawGGr LnaxD94fA8CfcIH+ UKAaRoe9RTScoWexLX4o qTHpEFzeHc8yHCV7TyWn JvUsIKhdV7MmSQRsklaq atlexZL5TWWdYJQp bB86Fh7huNymZg7cWVHr FRM2VZZwzWAuP2TnoR4t ElPiTBWlISDqY3StgQOm JSusC848RBimWmR2 LMCwofZqW2DoIMKunOsk XwU5l2B5Kz4MtVmnjKNq OJ1lFiXvKRx8D2HyTsy1 EZKmbBeuSC6ppPEy UDcwJf6obLiizTxgSU2g HLPwpufnk642WcTah9kd CVXunQPuWGlaJAE8L39q v3F4EZUvYHHvMXQ1 wIH5dR9zwSzwlmgflCPj dDsgdmVydGljYWwtYWxp L157LEZqxFclNrZCKqt3 C4UoQfc9ZISvjNeh XD2pqGQhWFqaPr1ggPou hLjrUN9oGQXezebxw907 YgAza6adHNQozELzAPio TBH0T74cz2U1YNRc KKIeXZN7cBV2sD4nqKdf bjogbGVmdDsgdmVydGlj ZWtiGWfrR963ZWHbeMda Jg9LDgs1Q5YdFsn2 RKGjhWxnUC0eeGQdYLep Lh1afZeczCgyFS1eUWRv fxgad740FrClo6kpFXFw xLTdZIdrORD1Z20l i9U0CDTyNSSjMKZ5sVC9 zK8kdNqdlffwxZXijLsd cxBecZupNEomFAjwU221 IHRvcDsnPlBheWVy OjwvdGQ+QN34fu10K8De UxpuTfh8PCVcQXJ3fXA4 nA7xSUXbGDdtv9X7oWF8 Z4WbbaIyas9bd0wg YXBz (more content not included)... Normal [facility] Retail - Clinical Noteon Retail - Clinical Note [id number] #1.00CD:127 Normal [facility] ABO/Rhon 12-10-2020 ABO/Rh AB POS Invalid Interpretation Code [facility] Comment on above: Performed By: #### 1 [id number], [id number] ####[facility] [address] [place] [address] ABSCon 12-10-2020 ABSC Gel Interp Negative Normal [facility] Comment on above: Performed By: #### 1 [id number], [id number] ####[id number] [place] [address] CBC w/Indiceson 12-10-2020 Erythrocyte distribution width (RBC) [Ratio] 13.0 % Normal 10.9-14.2 [facility] Comment on above: Performed By: #### 3 [id number], [id number] ####[address] [address] Hematocrit (Bld) [Volume fraction] 35.6 % Normal 34.0-46.0 [facility] Comment on above: Performed By: #### 3 [id number], [id number] ####[address] [address] Hemoglobin (Bld) [Mass/Vol] 12.0 g/dL Normal 12.0-16.0 [facility] Comment on above: Performed By: #### 3 [id number], [id number] ####[address] [address] MCH (RBC) [Entitic mass] 29.3 pg Normal 27.0-34.0 [facility] Comment on above: Performed By: #### 3 [id number], [id number] ####[address] [address] MCHC (RBC) [Mass/Vol] 33.8 g/dL Normal 31.4-36.0 [facility] Comment on above: Performed By: #### 3 [id number], [id number] ####[address] [address] MCV (RBC) [Entitic vol] 86.6 fL Normal 80.0-100.0 [facility] Comment on above: Performed By: #### 3 [id number], [id number] ####[address] [address] Platelet mean volume (Bld) [Entitic vol] 7.7 fL Normal 6.4-10.8 [facility] Comment on above: Performed By: #### 3 [id number], [id number] ####[facility] [address] [place] [address] Platelets (Bld) [#/Vol] 333.0 E9/L Normal 150.0-500.0 [facility] Comment on above: Performed By: #### 3 [id number], [id number] ####[facility] [address] [place] [address] RBC (Bld) [#/Vol] 4.1 E12/L Low 4.3-5.9 [facility] Comment on above: Performed By: #### 3 [id number], [id number] ####[facility] [address] [place] [address] WBC corrected for nucl RBC Auto (Bld) [#/Vol] 10.4 E9/L Normal 4.0-11.0 [facility] Comment on above: Performed By: #### 3 [id number], [id number] ####[facility] [address] [place] [address] Consent for Treatmenton Consent for Treatment [id number] #1.00CD:127 Normal [facility] Gest Scr Glu 1 Hron 12-10- 21 Glucose [Mass/Vol] 133 mg/dL Normal 55-140 [facility] Comment on above: Result Comment: Posi tive Screen =1 HR > 140mg/dL Performed By: #### 3 [id number], [id number] ####[facility] [address] [place] [address] Ambulatory Clinical Summaryo n 11-30-2020 Ambulatory Clinical Summary {[id number] Normal [facility] Obstetrics Office/Clinic Not massiel 11-30-2020 Obstetrics Office/Clinic Note Chief Complaint OB visit 23 weeks 3 days. Has noticied for about 3 days her joints and arms feel almost sun burned . Obstetric History History (0,0,3,1) # 1 Baby 1 Outcome Date: 2010 Outcome: Outcome or Result: Spontaneous Gender: -- Gest Age: 8 weeks Wt: -- Hospital: [facility]: -- Child's Name: -- Baby's Father: -- # 2 Baby 1 Outcome Date: 2016 Outcome: Live Outcome or Result: Gender: Male Gest Age: 32 weeks Wt: 2353 g Hospital: [facility]: -- Child's Name: -- Baby's Father: -- # 3 Baby 1 Outcome Date: 2019 Outcome: Outcome or Result: Elective Gender: -- Gest Age: 8 weeks Wt: -- Hospital: [facility] Labor: -- Child's Name: -- Baby's Father: -- # 4 Baby 1 Outcome Date: 2019 Outcome: Outcome or Result: Spontaneous Gender: -- Gest Age: 8 weeks Wt: -- Hospital: [facility] Labor: -- Child's Name: -- Baby's Father: -- EGA and NABEEL Gestational Age (EGA) and NABEEL * Note: EGA calculated as of 11/30/2020 NABEEL: 03/26/2021 EGA*: 23 weeks 3 days Type: Authoritative Method Date: 08/17/2020 Method: Ultrasound (08/17/2020) Confirmation: Confirmed Description: -- Comments: -- Entered by: Mikayla Castellano LPN on 10/03/2020 Other NABEEL Calculations for this : No additional NABEEL calculations have been recorded for this History of Present Illness 24 y/o here for visit. Active movement. Last couple of days her shoulders, elbows, and wrist have been aching. She has done no new activities. In the beginning of hips, tailbone, and knees were achy like this but resolved. Hs not noticed any swelling. Vomits in the mornings after she brushes her teeth. She has some heartburn. Review of Systems Constitutional: No fever, No chills, No headache. Skin: No rash, No lesions. Respiratory: No shortness of breath. Cardiovascular: No peripheral edema. Gastrointestinal: No nausea, No vomiting, Yesheartburn, No diarrhea, No constipation. Genitourinary: No dysuria. Gynecology: No abnormal vaginal discharge, No vaginal itching/burning, No bleeding, No leaking of fluid. Physical Exam Vitals & Measurements BP: 122/80 HT: 165 cm HT: 165.0 cm WT: 89.5 kg WT: 89.5 kg BMI: 32.87 Examinations Glucose Urine Dipstick: Negative Protein Urine Dipstick: Negative Weight Measured: 89.5 kg Systolic Blood Pressure: 122 mmHg Diastolic Blood Pressure: 80 mmHg D-EGA at Documented Date, Time: 23W 3D Fundal Height: 25.5 cm Labor Signs/Symptoms: None Baby A - Activity: Present per patient Baby A - FHR: 150 bpm Next Appointment: 4 week(s) Antepartum Comment: labs ordered. General Exam: Constitutional: alert, no acute distress, well hydrated, well developed, well nourished. Skin: normal color, no rashes, no lesions, no unusual bruising. Head: atraumatic, normocephalic. Eyes: EOM intact, no nystagmus, no icterus. Ears: no external deformities, gross hearing intact. Respiratory: no respiratory distress. Abdomen: gravid, nontender. Extremities: no deformities, no edema. Psych: oriented to all spheres, affect and mood appropriate, normal interaction, good eye contact. Assessment/Plan Recommend TUMS PRN for heartburn. 1. Obesity complicating , second trimester (O99.212: Obesity complicating , second trimester) Has gained 11 lbs in thus far. Talked about weight gain- recommend walking for at least 30 minutes 5 days per week, limiting excess sugars. Ordered: Office Visit Level 3 Est 89476 [place] 2. Supervision of high risk in second trimester (O09.92: Supervision of high risk , unspecified, second trimester) Follow up in 4 weeks for visit. 28 wk labs ordered for pt to have done after she is 24 wks. Ordered: ABO/Rh Antibody Screen CBC w/ Indices Gestational Screen Glucose 1 Hour Office Visit Level 3 Est 59576 [place] 3. 23 weeks gestation of (Z3A.23: 23 weeks gestation of ) Ordered: Office Visit Level 3 Est 71772 [place] 4. Hx of preeclampsia, prior , currently (O09.299: Supervision of with other poor reproductive or obstetric history, unspecified trimester) Taking baby ASA. Ordered: Office Visit Level 3 Est 04322 [place] 5. Maternal care for low transverse scar from previous delivery (O34.211: Maternal care for low transverse scar from previous delivery) Plan for repeat @ 39 wks. Ordered: Office Visit Level 3 Est 87518 [place] 6. 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 Ordered: Office Visit Level 3 Est 57400 NC Follow-up With When Contact Information [facility] In [address] [place] [address]- Additional Instructions: Problem List/Pas (more content not included)... Normal [facility] Comment on above: Result Comment: Elec tronically Signed By: Ban CARVALHO\.br\Date and Time Signed: 11/30/20 11:02 EDT Patient Educationon 12-01-19 Patient Education Obstetrics and Gynecology Glucose Tolerance Test During Why am I having this test? The glucose tolerance test (GTT) is done to check how your body processes sugar (glucose). This is one of several tests used to diagnose diabetes that develops during (gestational diabetes mellitus). Gestational diabetes is a temporary form of diabetes that some women develop during . It usually occurs during the second trimester of and goes away after delivery. Testing (screening) for gestational diabetes usually occurs between 24 and 28 weeks of . You may have the GTT test after having a 1-hour glucose screening test if the results from that test indicate that you may have gestational diabetes. You may also have this test if: ? You have a history of gestational diabetes. ? You have a history of giving to very large babies or have experienced repeated loss (stillbirth). ? You have signs and symptoms of diabetes, such as: ? Changes in your vision. ? Tingling or numbness in your hands or feet. ? Changes in hunger, thirst, and urination that are not otherwise explained by your . What is being tested? This test measures the amount of glucose in your blood at different times during a period of 3 hours. This indicates how well your body is able to process glucose. What kind of sample is taken? Blood samples are required for this test. They are usually collected by inserting a needle into a blood vessel. How do I prepare for this test? ? For 3 days before your test, eat normally. Have plenty of carbohydrate-rich foods. ? Follow instructions from your health care provider about: ? Eating or drinking restrictions on the day of the test. You may be asked to not eat or drink anything other than water (fast) starting 8?10 hours before the test. ? Changing or stopping your regular medicines. Some medicines may interfere with this test. Tell a health care provider about: ? All medicines you are taking, including vitamins, herbs, eye drops, creams, and otra-lwk-vjsrrlm medicines. ? Any blood disorders you have. ? Any surgeries you have had. ? Any medical conditions you have. What happens during the test? First, your blood glucose will be measured. This is referred to as your fasting blood glucose, since you fasted before the test. Then, you will drink a glucose solution that contains a certain amount of glucose. Your blood glucose will be measured again 1, 2, and 3 hours after drinking the solution. This test takes about 3 hours to complete. You will need to stay at the testing location during this time. During the testing period: ? Do not eat or drink anything other than the glucose solution. ? Do not exercise. ? Do not use any products that contain nicotine or tobacco, such as cigarettes and e-cigarettes. If you need help stopping, ask your health care provider. The testing procedure may vary among health care providers and hospitals. How are the results reported? Your results will be reported as milligrams of glucose per deciliter of blood (mg/dL) or millimoles per liter (mmol/L). Your health care provider will compare your results to normal ranges that were established after testing a large group of people (reference ranges). Reference ranges may vary among labs and hospitals. For this test, common reference ranges are: ? Fasting: less than 95?105 mg/dL (5.3?5.8 mmol/L). ? 1 hour after drinking glucose: less than 180?190 mg/dL (10.0?10.5 mmol/L). ? 2 hours after drinking glucose: less than 155?165 mg/dL (8.6?9.2 mmol/L). ? 3 hours after drinking glucose: 140?145 mg/dL (7.8?8.1 mmol/L). What do the results mean? Results within reference ranges are considered normal, meaning that your glucose levels are well-controlled. If two or more of your blood glucose levels are high, you may be diagnosed with gestational diabetes. If only one level is high, your health care provider may suggest repeat testing or other tests to confirm a diagnosis. Talk with your health care provider about what your results mean. Questions to ask your health care provider Ask your health care provider, or the department that is doing the test: ? When will my results be ready? ? How will I get my results? ? What are my treatment options? ? What other tests do I need? ? What are my next steps? Summary ? The glucose tolerance test (GTT) is one of several tests used to diagnose diabetes that develops during (gestational diabetes mellitus). Gestational diabetes is a temporary form of diabetes that some women develop during . ? You may have the GTT test after having a 1-hour glucose screening test if the results from that test indicate that you may have gestational diabetes. You may also have this test if you have any symptoms or risk factors for gestational diabetes. ? Talk with your health care provider about what your results mean. This inform (more content not included)... Normal [facility] US After 1st Trime steron 11-01-2020 US After 1st Trimester Exam Date/Time: 10/31/2020 15:58 EDT Reason for Exam: Standard Anatomy Report IMPRESSION: SINGLE LIVE INTRAUTERINE CORRESPONDING TO APPROXIMATELY COMPOSITE ULTRASOUND AGE: 19 WEEKS, 6 DAYS. NO GROSS ABNORMALITY IDENTIFIED. US After 1st Trimester: 10/31/2020 2:35 PM CLINICAL HISTORY: Standard Anatomy. . LMP: 06/19/2020 NABEEL (LMP): 03/26/2021 Gestational Age by LMP: 19 weeks, 1 days NABEEL from average ultrasound age: 0803/21/2021 COMPOSITE ULTRASOUND AGE: 19 WEEKS, 6 DAYS Transabdominal ultrasound of the gravid uterus was performed. FINDINGS: A single live intrauterine is noted in breech position. cardiac activity is measured at 144 bpm. The Cervix Length: 3.1 cm. PLACENTA: A grade 1-appearing placenta is anterior without evidence of placenta previa. The amniotic fluid volume appears within normal limits for gestation. MEASUREMENTS: The following measurements were obtained: * Biparietal Diameter: 4.5 cm with the Growth Percentile Rank: 66.0 Percent * Head Circumference: 16.9 cm with the Growth Percentile Rank: 64.0 Percent * Abdominal Circumference: 14.1 cm with the Growth Percentile Rank: 57.0 Percent * Femur Length: 3.3 cm with the Growth Percentile Rank: 81.0 Percent * which corresponds to COMPOSITE ULTRASOUND AGE: 19 WEEKS, 6 DAYS. ESTIMATED WEIGHT: Estimated Weight: 313.6 (grams) Estimated Weight: 0lbs 11.1ozs (lbs/oz) EFW growth percentile rank: 82 (Percent) Report EFW AUA Percentile: 41.7 (Percent) EFW LMP Percentile: 82.6 (Percent) cerebral ventricles, choroid plexus, posterior fossa, upper lip, spine, kidneys, urinary bladder, four-chamber heart, left ventricular outflow tract, right ventricular outflow tract, diaphragm, stomach, three-vessel cord, cord insertion and extremities appear within normal limits. FINAL REPORT Dictated: 11/01/2020 4:38 pm Edward Burgos M.D. Signed (Electronic Signature): 11/01/2020 4:38 pm Signed by: Edward Burgos M.D. Transcribed by: MARILYN Technologist: VICENTA Technical Comments NABEEL 03/26/2021 NABEEL Obtained NABEEL by US GA 19w1d History 5 Para 1 Patient History Prior Complications hiistory Pre-E Transabdominal Ultrasound Performed Placenta Location anterior Placenta Grade 1 Positioning Breech Amniotic Fluid Volume Normal Anatomy Brain Normal Heart Normal Kidneys. Normal Stomach Normal Bladder Normal 3VC Normal Spine Normal Extremities Normal Diaphragm Normal ACI Normal Normal [facility] Ambulatory Clinical Summaryo n 10-31-2020 Ambulatory Clinical Summary {[id number] Normal [facility] Ambulatory Clinical Summary {[id number] Normal [facility] Obstetrics Office/Clinic Not massiel 10-31-2020 Obstetrics Office/Clinic Note Chief Complaint OB 19w 1d, baby moving, occ. ORDONEZ Obstetric History History (0,0,3,1) # 1 Baby 1 Outcome Date: 2010 Outcome: Outcome or Result: Spontaneous Gender: -- Gest Age: 8 weeks Wt: -- [facility]: -- Child's Name: -- Baby's Father: -- # 2 Baby 1 Outcome Date: 2016 Outcome: Live Outcome or Result: Gender: Male Gest Age: 32 weeks Wt: 2353 g Hospital: [facility]: -- Child's Name: -- Baby's Father: -- # 3 Baby 1 Outcome Date: 2019 Outcome: Outcome or Result: Elective Gender: -- Gest Age: 8 weeks Wt: -- Hospital: [facility]: -- Child's Name: -- Baby's Father: -- # 4 Baby 1 Outcome Date: 2019 Outcome: Outcome or Result: Spontaneous Gender: -- Gest Age: 8 weeks Wt: -- Hospital: [facility]: -- Child's Name: -- Baby's Father: -- EGA and NABEEL Gestational Age (EGA) and NABEEL * Note: EGA calculated as of 10/31/2020 NABEEL: 03/26/2021 EGA*: 19 weeks 1 day Type: Authoritative Method Date: 08/17/2020 Method: Ultrasound (08/17/2020) Confirmation: Confirmed Description: -- Comments: -- Entered by: Mikayla Castellano LPN on 10/03/2020 Other NABEEL Calculations for this : No additional NABEEL calculations have been recorded for this History of Present Illness ob visit Review of Systems Constitutional: No fever, No chills, No sweats, No weakness. Respiratory: No shortness of breath, No cough. Cardiovascular: No chest pain, Noperipheral edema. Physical Exam Vitals & Measurements T: 37 ?C (Temporal Artery) BP: 118/76 HT: 165 cm WT: 86.9 kg WT: 86.9 kg BMI: 31.92 Examinations Glucose Urine Dipstick: Negative Protein Urine Dipstick: Negative Weight Measured: 86.9 kg Systolic Blood Pressure: 118 mmHg Diastolic Blood Pressure: 76 mmHg D-EGA at Documented Date, Time: 19W 1D Labor Signs/Symptoms: Headaches Baby A - Activity: Present per patient Baby A - FHR: 144 bpm Next Appointment: 4 week(s) Antepartum Comment: Esther US WNL today. EFW 83%, CL 3.1cm, ant placenta General Exam: Constitutional: alert, no acute distress, well hydrated, well developed, well nourished. Skin: normal color, no rashes, no lesions, no unusual bruising. Head: atraumatic, normocephalic. Eyes: EOM intact, no nystagmus, no icterus. Ears: no external deformities, gross hearing intact. Respiratory: no respiratory distress. Abdomen: gravid, nontender. Extremities: no deformities, no edema. Psych: oriented to all spheres, affect and mood appropriate, normal interaction, good eye contact. Assessment/Plan RTC 4 wks. Rec HSV suppression at 36wks (or possibly sooner depending on BPs) to avoid outbreak or prodromal sxs. 1. Supervision of high risk in second trimester (O09.92: Supervision of high risk , unspecified, second trimester) Ordered: Office Visit Level 4 Est 04291 NC 2. Obesity complicating , second trimester (O99.212: Obesity complicating , second trimester) Ordered: Office Visit Level 4 Est 27321 NC 3. Maternal care for low transverse scar from previous delivery (O34.211: Maternal care for low transverse scar from previous delivery) Ordered: Office Visit Level 4 Est 54608 NC 4. Hx of preeclampsia, prior , currently (O09.299: Supervision of with other poor reproductive or obstetric history, unspecified trimester) Ordered: Office Visit Level 4 Est 08256 NC 5. 19 weeks gestation of (Z3A.19: 19 weeks gestation of ) Ordered: Office Visit Level 4 Est 28341 NC 6. HSV infection (B00.9: Herpesviral infection, unspecified) Ordered: Office Visit Level 4 Est 36611 NC Follow-up With When Contact Information Ailyn ROCHE MD In [address] [place] [address]- Additional Instructions: Problem List/Past Medical History Ongoing HSV infection Hx of preeclampsia, prior , currently Maternal care for low transverse scar from previous delivery Obesity complicating , second trimester Supervision of high risk in second trimester Historical Medications Aspirin Low Dose Multivitamins with Folic Acid 0.5 mg oral tablet, 2 tab(s), Oral, Daily Allergies No Known Medication Allergies Social History Alcohol - Denies Alcohol Use, 10/03/2020 DENIES, 10/31/2020 Substance Abuse - Denies Substance Abuse, 10/03/2020 DENIES, 10/31/2020 Tobacco - Denies Tobacco Use, 10/03/2020 Never (less than 100 in lifetime) Tobacco Use:., 10/03/2020 Family History Family history is negative Lab Results Ambulatory Point of Care Results Glucose Urine Dipstick: Negative (10/31/20 15:48:00) Protein (more content not included)... Normal [facility] Comment on above: Result Comment: Elec tronically Signed By: EVA PITT, Ailyn Fabian\.br\Date and Time Signed: 10/31/20 16:20 EDT Patient Educationon 11-01-19 Patient Education Obstetrics and Gynecology Abdominal Pain During Abdominal pain is common during , and has many possible causes. Some causes are more serious than others, and sometimes the cause is not known. Abdominal pain can be a sign that labor is starting. It can also be caused by normal growth and stretching of muscles and ligaments during . Always tell your health care provider if you have any abdominal pain. Follow these instructions at home: ? Do not have sex or put anything in your vagina until your pain goes away completely. ? Get plenty of rest until your pain improves. ? Drink enough fluid to keep your urine pale yellow. ? Take kgfv-ydb-jvxfhiq and prescription medicines only as told by your health care provider. ? Keep all follow-up visits as told by your health care provider. This is important. Contact a health care provider if: ? Your pain continues or gets worse after resting. ? You have lower abdominal pain that: ? Comes and goes at regular intervals. ? Spreads to your back. ? Is similar to menstrual cramps. ? You have pain or burning when you urinate. Get help right away if: ? You have a fever or chills. ? You have vaginal bleeding. ? You are leaking fluid from your vagina. ? You are passing tissue from your vagina. ? You have vomiting or diarrhea that lasts for more than 24 hours. ? Your baby is moving less than usual. ? You feel very weak or faint. ? You have shortness of breath. ? You develop severe pain in your upper abdomen. Summary ? Abdominal pain is common during , and has many possible causes. ? If you experience abdominal pain during , tell your health care provider right away. ? Follow your health care provider's home care instructions and keep all follow-up visits as directed. This information is not intended to replace advice given to you by your health care provider. Make sure you discuss any questions you have with your health care provider. Document Released: 07/22/2006 Document Revised: 11/09/2019 Document Reviewed: 10/24/2017 [employer] Patient Education ? 2019 [employer] Eating Plan for Women While you are , your body requires additional nutrition to help support your growing baby. You also have a higher need for some vitamins and minerals, such as folic acid, calcium, iron, and vitamin D. Eating a healthy, well-balanced diet is very important for your health and your baby's health. Your need for extra calories varies for the three 3-month segments of your (trimesters). For most women, it is recommended to consume: ? 150 extra calories a day during the first trimester. ? 300 extra calories a day during the second trimester. ? 300 extra calories a day during the third trimester. What are tips for following this plan? ? Do not try to lose weight or go on a diet during . ? Limit your overall intake of foods that have empty calories. These are foods that have little nutritional value, such as sweets, desserts, candies, and sugar-sweetened beverages. ? Eat a variety of foods (especially fruits and vegetables) to get a full range of vitamins and minerals. ? Take a vitamin to help meet your additional vitamin and mineral needs during , specifically for folic acid, iron, calcium, and vitamin D. ? Remember to stay active. Ask your health care provider what types of exercise and activities are safe for you. ? Practice good food safety and cleanliness. Wash your hands before you eat and after you prepare raw meat. Wash all fruits and vegetables well before peeling or eating. Taking these actions can help to prevent food-borne illnesses that can be very dangerous to your baby, such as listeriosis. Ask your health care provider for more information about listeriosis. What does 150 extra calories look like? Healthy options that provide 150 extra calories each day could be any of the following: ? 6?8 oz (170?230 g) of plain low-fat yogurt with ? cup of berries. ? 1 apple with 2 teaspoons (11 g) of peanut butter. ? Cut-up vegetables with ? cup (60 g) of hummus. ? 8 oz (230 mL) or 1 cup of low-fat chocolate milk. ? 1 stick of string cheese with 1 medium orange. ? 1 peanut butter and jelly sandwich that is made with one slice of whole-wheat bread and 1 tsp (5 g) of peanut butter. For 300 extra calories, you could eat two of those healthy options each day. What is a healthy amount of weight to gain? The right amount of weight gain for you is based on your BMI before you became . If your BMI: ? Was less than 18 (underweight), you should gain 28?40 lb (13?18 kg). ? Was 18?24.9 (normal), you should gain 25?35 lb (11?16 kg). ? Was 25?29.9 (overweight), you should gain 15?25 lb (7?11 kg). ? Was 30 or greater (obese), you should gain 11?20 lb (5?9 kg). What if I am having twins or multiples? Generally, if you (more content not included)... Normal [facility] Obstetrics Office/Clinic Not massiel 10-03-2020 Obstetrics Office/Clinic Note Chief Complaint 1st OB , Nausea in the morning. Denies spotting or cramping. Obstetric History History (0,0,3,1) # 1 Baby 1 Outcome Date: 2010 Outcome: Outcome or Result: Spontaneous Gender: -- Gest Age: 8 weeks Wt: -- [facility]: -- Child's Name: -- Baby's Father: -- # 2 Baby 1 Outcome Date: 2016 Outcome: Live Outcome or Result: Gender: Male Gest Age: 32 weeks Wt: 2353 g Hospital: [facility]: -- Child's Name: -- Baby's Father: -- # 3 Baby 1 Outcome Date: 2019 Outcome: Outcome or Result: Elective Gender: -- Gest Age: 8 weeks Wt: -- Hospital: [facility]: -- Child's Name: -- Baby's Father: -- # 4 Baby 1 Outcome Date: 2019 Outcome: Outcome or Result: Spontaneous Gender: -- Gest Age: 8 weeks Wt: -- Hospital: [facility]: -- Child's Name: -- Baby's Father: -- EGA and NABEEL Gestational Age (EGA) and NABEEL * Note: EGA calculated as of 10/03/2020 NABEEL: 03/26/2021 EGA*: 15 weeks 1 day Type: Authoritative Method Date: 08/17/2020 Method: Ultrasound (08/17/2020) Confirmation: Confirmed Description: -- Comments: -- Entered by: Mikayla Castellano LPN on 10/03/2020 Other NABEEL Calculations for this : No additional NABEEL calculations have been recorded for this History of Present Illness 24 Years old patient here for first OB visit. She is transferring care to our office from [place]. Her nausea mostly went away, just puking once in the mornings. She has been getting headaches almost every day, tylenol helping. LMP unsure. Not on contraception at time of conception, no bleeding since LMP. She had NIPT testing done with negative results. Hx c/s at 32 weeks in [place] for severe preeclampsia. She is taking baby ASA and vitamins. Hx 2 miscarriages and one . She has hx genital herpes. No recent outbreaks. No first degree relatives with diabetes. No recent travel. Denies smoking, alcohol, or drug use. Last pap 1-21 NILM. Hx abnormal pap with HPV. Work: Stays home. Review of Systems Constitutional: No fever, No chills, Yes headache. Skin: No rash, No lesions. Respiratory: No shortness of breath. Cardiovascular: No peripheral edema. Gastrointestinal: No nausea, Yes vomiting, Noheartburn, No diarrhea, No constipation. Genitourinary: No dysuria. Gynecology: No abnormal vaginal discharge, No vaginal itching/burning, No bleeding. Physical Exam Vitals & Measurements BP: 124/80 HT: 165.0 cm HT: 165 cm WT: 85.1 kg WT: 85.1 kg BMI: 31.26 Examinations Glucose Urine Dipstick: Negative Protein Urine Dipstick: Negative Weight Measured: 85.1 kg Systolic Blood Pressure: 124 mmHg Diastolic Blood Pressure: 80 mmHg D-EGA at Documented Date, Time: 15W 1D Labor Signs/Symptoms: Headaches Baby A - Activity: Absent per patient Baby A - FHR: 158 bpm Next Appointment: 5 week(s) Antepartum Comment: transfer . obesity, hx c/s for severe preeclampsia @ 32 wks, hx HSV. General Exam: Constitutional: alert, no acute distress, well hydrated, well developed, well nourished. Skin: normal color, no rashes, no lesions, no unusual bruising. Head: atraumatic, normocephalic. Eyes: EOM intact, no injection, no nystagmus, no icterus. Ears: no external deformities, gross hearing intact. Respiratory: no respiratory distress. Abdomen: nondistended, nontender, no guarding. Spine: normal mobility, no deformities. Extremities: no deformities, no clubbing, no cyanosis, no edema. Neurol: normal, cranial nn II-XII grossly intact, sensation intact, motor intact, station & gait normal. Psych: oriented to all spheres, affect and mood appropriate, normal interaction, good eye contact. Assessment/Plan 1. Obesity complicating , second trimester (O99.212: Obesity complicating , second trimester) Discussed healthy diet focusing on fruits, vegetables, lean proteins, whole grains, and limiting sugars and empty calories. Recommend exercising 30 minutes per day at least 5 days per week. Ordered: Office Visit Level 3 Est 32004 2. Supervision of high risk in second trimester (O09.92: Supervision of high risk , unspecified, second trimester) Follow up in 5 weeks for anatomy US and appt with Dr. Roche. Ordered: Office Visit Level 3 Est 53091 After 1st Trimester 3. 15 weeks gestation of (Z3A.15: 15 weeks gestation of ) Ordered: Office Visit Level 3 Est 50342 4. Hx of preeclampsia, prior , currently (O09.299: Supervision of with other poor reproductive or obstetric history, unspecified trimester) Continue with baby ASA. Ordered: Office Visit Level 3 Est 55290 5. Maternal care for low transverse scar from previous delivery (O34.211: (more content not included)... Normal [facility] Comment on above: Result Comment: Elec tronically Signed By: Ban CARVALHO\.jacy\Date and Time Signed: 10/03/20 16:23 EST Patient Educationon 10-04-19 21 Patient Education Obstetrics and Gynecology Second Trimester of The second trimester is from week 14 through week 27 (months 4 through 6). The second trimester is often a time when you feel your best. Your body has adjusted to being , and you begin to feel better physically. Usually, morning sickness has lessened or quit completely, you may have more energy, and you may have an increase in appetite. The second trimester is also a time when the fetus is growing rapidly. At the end of the sixth month, the fetus is about 9 inches long and weighs about 1? pounds. You will likely begin to feel the baby move (quickening) between 16 and 20 weeks of . Body changes during your second trimester Your body continues to go through many changes during your second trimester. The changes vary from woman to woman. ? Your weight will continue to increase. You will notice your lower abdomen bulging out. ? You may begin to get stretch mojica on your hips, abdomen, and breasts. ? You may develop headaches that can be relieved by medicines. The medicines should be approved by your health care provider. ? You may urinate more often because the fetus is pressing on your bladder. ? You may develop or continue to have heartburn as a result of your . ? You may develop constipation because certain hormones are causing the muscles that push waste through your intestines to slow down. ? You may develop hemorrhoids or swollen, bulging veins (varicose veins). ? You may have back pain. This is caused by: ? Weight gain. ? hormones that are relaxing the joints in your pelvis. ? A shift in weight and the muscles that support your balance. ? Your breasts will continue to grow and they will continue to become tender. ? Your gums may bleed and may be sensitive to brushing and flossing. ? Dark spots or blotches (chloasma, mask of ) may develop on your face. This will likely fade after the baby is born. ? A dark line from your belly button to the pubic area (linea nigra) may appear. This will likely fade after the baby is born. ? You may have changes in your hair. These can include thickening of your hair, rapid growth, and changes in texture. Some women also have hair loss during or after , or hair that feels dry or thin. Your hair will most likely return to normal after your baby is born. What to expect at visits During a routine visit: ? You will be weighed to make sure you and the fetus are growing normally. ? Your blood pressure will be taken. ? Your abdomen will be measured to track your baby's growth. ? The heartbeat will be listened to. ? Any test results from the previous visit will be discussed. Your health care provider may ask you: ? How you are feeling. ? If you are feeling the baby move. ? If you have had any abnormal symptoms, such as leaking fluid, bleeding, severe headaches, or abdominal cramping. ? If you are using any tobacco products, including cigarettes, chewing tobacco, and electronic cigarettes. ? If you have any questions. Other tests that may be performed during your second trimester include: ? Blood tests that check for: ? Low iron levels (anemia). ? High blood sugar that affects women (gestational diabetes) between 24 and 28 weeks. ? Rh antibodies. This is to check for a protein on red blood cells (Rh factor). ? Urine tests to check for infections, diabetes, or protein in the urine. ? An ultrasound to confirm the proper growth and development of the baby. ? An amniocentesis to check for possible genetic problems. ? screens for spina bifida and Down syndrome. ? HIV (human immunodeficiency virus) testing. Routine testing includes screening for HIV, unless you choose not to have this test. Follow these instructions at home: Medicines ? Follow your health care provider's instructions regarding medicine use. Specific medicines may be either safe or unsafe to take during . ? Take a vitamin that contains at least 600 micrograms (mcg) of folic acid. ? If you develop constipation, try taking a stool softener if your health care provider approves. Eating and drinking ? Eat a balanced diet that includes fresh fruits and vegetables, whole grains, good sources of protein such as meat, eggs, or tofu, and low-fat dairy. Your health care provider will help you determine the amount of weight gain that is right for you. ? Avoid raw meat and uncooked cheese. These carry germs that can cause defects in the baby. ? If you have low calcium intake from food, talk to your health care provider about whether you should take a daily calcium supplement. ? Limit foods that are high in fat and processed sugars, such as fried and sweet foods. ? To prevent constipation: ? Drink enough fluid to keep your urine clear or pale yellow. ? Eat foods that are (more content not included)... Normal [facility] Transfer Inon 10-03-2020 Transfer In [id number] #[id number] Normal [facility] Vital Signs Date Time Vital Sign Value Performing Clinician Facility 08-18-2022 10:10-0500 Body height 165.1 cm Ban Ontiveros Other [facility] 08-18-2022 10:10-0500 Body mass index (BMI) [Ratio] 30.78 kg/m2 Ban Ontiveros Other [facility] 08-18-2022 10:10-0500 Body temperature 97.8 [degF] Ban Ontiveros Other [facility] Other 08-18-2022 10:10-0500 Body weight 83.92 kg Ban Ontiveros Other [facility] Other 08-18-2022 10:10-0500 Respiratory rate 18 /min Ban Ontiveros Other [facility] Other 08-18-2022 10:10-0500 SaO2% (BldA) [Mass fraction] 98 % Ban Ontiveros Other [facility] Other Encounters Encounter Date Encounter Type Care Provider Facility Start: 07-10-2024 End: 07-10-2024 [facility] Result Encounter Jose Angel Cash DO Work Phone: [facility] External Department Unsolicited Start: 07-10-2024 End: 07-10-2024 [facility] Result Encounter Jose Angel Cash DO Work Phone: [facility] External Department Unsolicited Start: 03-23-2024 End: 03-23-2024 ambulatory ASUH NO Not Available Start: 12-18-2023 End: 12-18-2023 ambulatory JOSE ANGEL MORTENSEN Not Available Start: 09-08-2022 End: 09-09-[address] MIKAL BAIN Facility:[facility] Start: 08-18-2022 End: 08-18-2022 ambulatory Ban Ontiveros Other [facility] Other Start: 08-18-2022 Office outpatient ne w 30 minutes Ban Ontiveros [facility] Start: 04-19-2022 End: 04-20-[address] JOSE ANGEL MORTENSEN Facility:[facility] Start: 10-20-2021 End: 10-21-[address] JOSE AGNEL MORTENSEN Facility:[facility] Start: 10-09-2021 End: 10-09-[address] JOSE ANGEL MORTENSEN Facility:[facility] Start: 01-25-2017 End: 01-28-2017 Evaluation and management of inpatient [facility] Procedures Date Procedure Procedure Detail Performing Clinician Start: 07-10-2024 [facility] Core y Cash DO Work Phone: Payers Date Payer Category Payer Private Health Insurance [facility]ICA[facility] [id number] 1995 Unknown [id number] 1995 Unknown [id number] 593 1995 Unknown [id number] 593 1995 Unknown [id number] 593 1995 Unknown [id number] 1259 1995 Unknown [id number] 1259 1959 Unknown [id number] 1959 Unknown [id number] 1959 Unknown [id number] Social History Date Type Detail Facility Start: 12-18-2023 Sex Assigned At [facility] [employer] Other Start: 02-26-2023 Tobacco smoking status [facility] Never smoked tobacco [facility] Start: 02-26-2023 Tobacco use and exposure Smokeless tobacco non-user [facility] Start: 03-23-2024 Alcoholic beverage intake Lifetime non-drinker (finding) [facility] Start: 12-18-2023 History of Social function [facility] Start: 02-26-2023 Alcohol Comment Caffeine: none [facility] Start: 1995 Sex assigned at Not on file [facility] Start: 10-17-2022 Gender identity Identifies as female gender (finding) [facility] Start: 10-17-2022 Sexual orientation Choose not to disclose [facility] Evaluation note 08-18-2022 Note Date & Type Note Facility 08-18-2022 Evaluation note Encounter Date Diagnosis Assessment Notes Aug, Sore throat (ICD-10 - J02.9) Aug, Contact with and (suspected) exposure to other viral communicable diseases (ICD-10 - Z20.828) Aug, Pharyngitis due to other organism (ICD-10 - J02.8) Symptoms presented in office today may be related to [place]. Take medications as directed. Saltwater gargles may help with pain and disrupts bacteria and viral infections. Continue tylenol/ibu for general discomfort. Encourage fluids. Symptoms should improve within the next 4-7 days. [facility] Other History general Narrative - Reported Note Date & Type Note Facility History general Narrative - Reported Type Surgical History C section [facility] Other Summary Purpose Family History No Family History Records FoundNo Family History Records FoundNo Family History Records FoundNo Family History Records Found Advance Directives No Advanced Directives Records FoundNo Advanced Directives Records FoundNo Advanced Directives Records FoundNo Advanced Directives Records Found Additional Source Comments INFORMATION SOURCE (unrecogn ized section and content) DATE CREATED AUTHOR 01/29/2018 [facility] DATE CREATED AUTHOR AUTHOR'S ORGANIZ ATION 01/03/2021 [facility] DATE CREATED AUTHOR AUTHOR'S ORGANIZ ATION 09/13/2022 [facility] DATE CREATED AUTHOR AUTHOR'S ORGANIZ ATION 03/23/2024 [facility] EPIC REASON FOR VISIT (unrecogniz ed section and content) SORE THROAT, NASAL CONGESTIO N Care Teams (unrecognized sec tion and content) 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 This clinical summary was aggregated from multiple sources. Caution should be exercised in using it in the provision of clinical care. This summary normalizes information from multiple sources, and as a consequence, information in this document may materially change the coding, format and clinical context of patient data. In addition, data may be omitted in some cases. CLINICAL DECISIONS SHOULD BE BASED ON THE PRIMARY CLINICAL RECORDS. [facility]. provides no warranty or guarantee of the accuracy or completeness of information in this document.
[2024-09-01 10:11] LABS: Bilirubin Urine NEGATIVE (NEGATIVE); Blood Urine TRACE-I (NEGATIVE); Clarity Urine CLEAR (CLEAR); Color Urine YELLOW (YELLOW); Glucose Urine UA NEGATIVE (NEGATIVE); Ketones Urine TRACE mg/dL (NEGATIVE); Leukocyte Esterase Urine NEGATIVE (NEGATIVE); Nitrite Urine NEGATIVE (NEGATIVE); Protein Urine 100 mg/dL (NEG/TRACE); Urobilinogen Urine 0.2 EU/dL (0.2-1.0)
[2024-09-01 10:12] LABS: Influenza Virus A Antigen Negative; Influenza Virus B Antigen Negative; Internal Control Within Normal Limits; SARS-CoV-2 Ag NEGATIVE (NEGATIVE)
[2024-09-01 10:13] LABS: HCG Qualitative Urine* NEGATIVE (NEGATIVE); Internal Control Within Normal Limits
[2024-09-01 10:25] LABS: Bacteria Urine SMALL #/HPF (NONE SEEN); Mucus Urine MODERATE (NONE SEEN); RBC Urine 0-2 #/HPF (0-2); WBC Urine NONE SEEN #/HPF (NONE SEEN)
[2024-09-01 10:26] LABS: Cast Seen? NONE SEEN #/LPF (NONE SEEN); Crystals Seen? None Seen #/HPF (None Seen); Squamous Epithelial Cell Urine MODERATE #/LPF (NONE/RARE); Urine Culture Indicated YES
== END 2024-09-01 10:48 | disposition home or self-care (01) ==
PROVIDERS: Emergency Provider Emergency Medicine
DX: J06.9 Acute upper respiratory infection, unspecified (principal)
CPT/HCPCS: 81001; 84703; 87086; 87804; 87811; 99283

== ENCOUNTER 2024-09-05 18:51 | Emergency (ER) | payer OTHER, SELFPAY ==
[2024-09-05 18:53] VITALS: BP 120/74; PULSE 91; TEMP 37.7; O2SAT 95; BMI 29.5
--- OUTSIDE RECORDS SUMMARY | 2024-09-05 18:54 | XMS_ITS | CCD ---
Author Organization [facility] Care Team Providers Care Net Software Developer Name Role Phone HUMBERTO MILLAN Unavailable Unavailable [...] Attending Unavailable Mikal Bain Primary Care Provider Medications Current Medications Medication Drug Class(es) Dates [...] 04-19-2022 Chronic Other aftercare (1 source) Other group home (current) drug therapy; Translations: [OTH LONGTERM CURRENT DRUG THERAPY] Onset: 09-09-2022 Episodic Other [...] 09-08-2022 BASO # 0.0 103/ul Normal 0.0-0.1 [facility] Comment on above: Performed By: #### C BC #### [facility] [address] [address] [address] Sigifredo Valdez Basophils/100 WBC (Bld) 0.4 % Normal 0.2-2.0 [facility] Comment on above: Performed By: #### C BC #### [facility] [address] [place] [address] Dr. Sigifredo Valdez EO # 0.2 103/ul Normal 0.0-0.7 [facility] Comment on above: Performed By: #### C BC #### [facility] [address] [address] [address] Sigifredo Valdez Eosinophils/100 WBC (Bld) 3.1 % Normal 0.9-7.0 [facility] Comment on above: Performed By: #### C BC #### [facility] [address] [address] [address] Sigifredo Valdez Erythrocyte distribution width (RBC) [Ratio] 13.2 % Normal 11.0-15.0 [facility] Comment on above: Performed By: #### C BC #### [facility] [address] [place] [address] Dr. Sigifredo Valdez Hematocrit (Bld) [Volume fraction] 44.8 % Normal 36.0-48.0 [facility] Comment on above: Performed By: #### C BC #### [facility] [address] [place] [address] Dr. Sigifredo Valdez Hemoglobin (Bld) [Mass/Vol] 14.0 g/dL Normal 12.0-16.0 [facility] Comment on above: Performed By: #### C BC #### [facility] [address] [place] [address] Dr. Sigifredo Valdez IG # 0.03 10e3/ul Normal 0.00-0.03 [facility] Comment on above: Performed By: #### C BC #### [facility] [address] [place] [address] Dr. Sigifredo Valdez IG % 0.4 % Normal 0.0-0.5 [facility] Comment on above: Performed By: #### C BC #### [facility] [address] [place] [address] Dr. Sigifredo Valdez LYMPH # 2.3 103/ul Normal 1.2-3.8 [facility] Comment on above: Performed By: #### C BC #### [facility] [address] [place] [address] Dr. Sigifredo Valdez Lymphocytes/100 WBC (Bld) 31.6 % Normal 20.5-60.0 [facility] Comment on above: Performed By: #### C BC #### [facility] [address] [place] [address] Dr. Sigifredo Valdez MANUAL DIFF REQ NO [facility] Comment on above: Performed By: #### C BC #### [facility] [address] [place] [address] Dr. Sigifredo Valdez MCH (RBC) [Entitic mass] 27.1 pg Normal 26.7-34.0 [facility] Comment on above: Performed By: #### C BC #### [facility] [address] [place] [address] Dr. Sigifredo Valdez MCHC (RBC) [Mass/Vol] 31.3 g/dL Normal 29.9-35.2 [facility] Comment on above: Performed By: #### C BC #### [facility] [address] [place] [address] Dr. Sigifredo Valdez MCV (RBC) [Entitic vol] 86.7 fL Normal 81.0-99.0 [facility] Comment on above: Performed By: #### C BC #### [facility] [address] [place] [address] Dr. Sigifredo Valdez MONO # 0.6 103/ul Normal 0.3-0.8 [facility] Comment on above: Performed By: #### C BC #### [facility] [address] [place] [address] Dr. Sigifredo Valdez Monocytes/100 WBC (Bld) 7.7 % Normal 1.7-12.0 [facility] Comment on above: Performed By: #### C BC #### [facility] [address] [place] [address] Dr. Sigifredo Valdez NEUT # 4.1 103/ul Normal 1.4-6.5 [facility] Comment on above: Performed By: #### C BC #### [facility] [address] [place] [address] Dr. Sigifredo Valdez Neutrophils/100 WBC (Bld) 56.8 % Normal 43.0-75.0 [facility] Comment on above: Performed By: #### C BC #### [facility] [address] [place] [address] Dr. Sigifredo Valdez Platelet mean volume (Bld) [Entitic vol] 9.0 fL Critically low 9.5-13.5 [facility] Comment on above: Performed By: #### C BC #### [facility] [address] [place] [address] Dr. Sigifredo Valdez PLT 400 103/ul Normal 150-450 [facility] Comment on above: Performed By: #### C BC #### [facility] [address] [place] [address] Dr. Sigifredo Valdez RBC 5.17 106/ul Normal 4.20-5.40 [facility] Comment on above: Performed By: #### C BC #### [facility] [address] [place] [address] Dr. Sigifredo Valdez WBC 7.1 103/ul Normal 4.0-11.0 [facility] Comment on above: Performed By: #### C BC #### [facility] [address] [place] [address] Dr. Sigifredo Valdez FREE T4on 09-08-2022 Free T4 [Mass/Vol] 1.12 ng/dL Normal 0.76-1.46 [facility] Comment on above: Performed By: #### F T4 #### [facility] [address] [place] [address] Dr. Sigifredo Valdez GLYCOHEMOGLOBIN A1Con 2022 ADA RECOMMENDATION SEE BELOW Normal [facility] Comment on above: Result Comment: ADA RECOMMENDED LIMIT 4.0 - 6.0 ADA THERAPEUTIC TARGET < 7.0 ACTION SUGGESTED > 7.0 Performed By: #### A 1C #### [facility] [address] [place] [address] Dr. Sigifredo Valdez Glucose [Mass/Vol] 103 mg/dL Normal [facility] Comment on above: Performed By: #### A 1C #### [facility] [address] [place] [address] Dr. Sigifredo Valdez HbA1c (Bld) [Mass fraction] 5.2 % Normal 4.5-6.2 [facility] Comment on above: Performed By: #### A 1C #### [facility] [address] [place] [address] Dr. Sigifredo Valdez MONOon 09-08-2022 Monocytes (Bld) [#/Vol] Negative Normal NEGATIVE [facility] Comment on above: Performed By: #### M JAME #### [facility] [address] [place] [address] Dr. Sigifredo Valdez PROF 14(COMP METB)on 023 Albumin [Mass/Vol] 3.4 g/dL Normal 3.4-5.0 [facility] Comment on above: Performed By: #### T SH, CMP #### [facility] [address] [place] [address] Dr. Sigifredo Valdez Albumin/Globulin [Mass ratio] 0.9 {ratio} Normal [facility] Comment on above: Performed By: #### T SH, CMP #### [facility] [address] [address] [address] Sigifredo Valdez ALP [Catalytic activity/Vol] 55 U/L Normal 46-116 [facility] Comment on above: Performed By: #### T SH, CMP #### [facility] [address] [address] [address] Sigifredo Valdez ALT [Catalytic activity/Vol] 25 U/L Normal 14-59 [facility] Comment on above: Performed By: #### T SH, CMP #### [facility] [address] [address] [address] Sigifredo Valdez Anion gap [Moles/Vol] 9.7 mmol/L Normal [facility] Comment on above: Performed By: #### T SH, CMP #### [facility] [address] [place] [address] Dr. Sigifredo Valdez AST [Catalytic activity/Vol] 15 U/L Normal 15-37 [facility] Comment on above: Performed By: #### T SH, CMP #### [facility] [address] [place] [address] Dr. Sigifredo Valdez Bilirubin [Mass/Vol] 0.3 mg/dL Normal 0.2-1.0 [facility] Comment on above: Performed By: #### T SH, CMP #### [facility] [address] [place] [address] Dr. Sigifredo Valdez Calcium [Mass/Vol] 8.7 mg/dL Normal 8.5-10.1 [facility] Comment on above: Performed By: #### T SH, CMP #### [facility] [address] [place] [address] Dr. Sigifredo Valdez Chloride [Moles/Vol] 104 mmol/L Normal 98-107 [facility] Comment on above: Performed By: #### T SH, CMP #### [facility] [address] [address] [address] Sigifredo Valdez CO2 [Moles/Vol] 30.1 mmol/L Normal 21.0-32.0 [facility] Comment on above: Performed By: #### T SH, CMP #### [facility] [address] [address] [address] Sigifredo Valdez Creatinine [Mass/Vol] 0.66 mg/dL Normal 0.55-1.02 [facility] Comment on above: Performed By: #### T SH, CMP #### [facility] [address] [address] [address] Sigifredo Valdez EGFR-AF CYMRAES >60 Normal >=60 [facility] Comment on above: Performed By: #### T SH, CMP #### [facility] [address] [address] [address] Sigifredo Valdez EGFR-NON AF CYMRAES >60 Normal >=60 [facility] Comment on above: Performed By: #### T SH, CMP #### [facility] [address] [address] [address] Sigifredo Valdez Globulin (S) [Mass/Vol] 4.0 g/dL Normal [facility] Comment on above: Performed By: #### T SH, CMP #### [facility] [address] [place] [address] Dr. Sigifredo Valdez Glucose [Mass/Vol] 90 mg/dL Normal 74-106 [facility] Comment on above: Performed By: #### T SH, CMP #### [facility] [address] [place] [address] Dr. Sigifredo Valdez Potassium [Moles/Vol] 3.8 mmol/L Normal 3.5-5.1 [facility] Comment on above: Performed By: #### T SH, CMP #### [facility] [address] [place] [address] Dr. Sigifredo Valdez Protein [Mass/Vol] 7.4 g/dL Normal 6.4-8.2 [facility] Comment on above: Performed By: #### T SH, CMP #### [facility] [address] [place] [address] Dr. Sigifredo Valdez Sodium [Moles/Vol] 140 mmol/L Normal 136-145 [facility] Comment on above: Performed By: #### T SH, CMP #### [facility] [address] [address] [address] Sigifredo Valdez Urea nitrogen [Mass/Vol] 10.0 mg/dL Normal 7.0-18.0 [facility] Comment on above: Performed By: #### T SH, CMP #### [facility] [address] [address] [address] Sigifredo Valdez Urea nitrogen/Creatinine [Mass ratio] 15.2 mg/mg Normal [facility] Comment on above: Performed By: #### T SH, CMP #### [facility] [address] [place] [address] Dr. Sigifredo Valdez TSHon 09-08-2022 TSH 0.941 uIU/mL Normal 0.358-3.740 [facility] Comment on above: Performed By: #### T SH, CMP #### [facility] [address] [place] [address] Dr. Sigifredo Valdez COVID/FLU/RSV RT-PCRon 08-18 SARS-CoV-2 (COVID-19) RNA SARAH+probe Ql (Unsp spec) Negative [facility] Other COVID/FLU/RSV RT-PCR Negative [employer] [facility] Other Quick Strepon 08-18-2022 S. pyogenes Org specific cx Ql (Throat) Negative [facility] Other Quick Strep [employer] [facility] Other PREG QUANT HCGon 04-19-2022 HCG QUANT <1 Normal [facility] Comment on above: Performed By: #### P REGQNT #### [facility] [address] [place] [address] Dr. Sigifredo Valdez HCG RANGE SEE BELOW Normal [facility] Comment on above: Result Comment: 5-50 0.2-1 WEEK 50-500 1-2 WEEKS 100-5,000 2-3 WEEKS 500-10,000 3-4 WEEKS 1,000-50,000 4-5 WEEKS 10,000-100,000 5-6 WEEKS 15,000-200,000 6-8 WEEKS 10,000-100,000 2-3 MONTHS Performed By: #### P REGQNT #### [facility] [address] [address] [address] Sigifredo Valdez MG MAMM DIAGNOSTIC 3D CYNTHIA CA Don 10-20-2021 MG MAMM DIAGNOSTIC 3D CYNTHIA CAD Patient: ROBER UCELLAR Exam Date: 10/20/2021 : 1995 Gender:F Ordering : DR JOSE ANGEL MORTENSEN . Admission #: [id number] Family : Order #: [id number] CLICK HERE TO VIEW EXAM RADIOLOGY REPORT [...] at age 60. LOCATION: The [facility] BREAST COMPOSITION: Heterogeneously dense,which may obscure small [...] 10/20/2021 at 15:30 Normal [facility] US BREAST RIGHT LIMITEDon US BREAST RIGHT LIMITED Patient: ROBER CUELLAR Exam Date: 10/20/2021 : 1995 Gender:F Ordering : DR JOSE ANGEL MORTENSEN . Admission #: [id number] Family : Order #: [id number] CLICK HERE TO VIEW EXAM RADIOLOGY REPORT [...] at age 60. LOCATION: [facility] BREAST COMPOSITION: Heterogeneously dense,which may obscure small [...] Zheng Dickinson M.D. on 10/20/2021 at 15:30 [facility] PAP ACOG PANEL 2: 21 to 29on 10-13-2021 . . Normal [facility] Comment on above: Performed By: #### 4 [id number] #### [facility] [address] [address] [address] Sigifredo Valdez Age Gdln ACOG Testing 21- Normal [facility] Comment on above: Performed By: #### 4 [id number] #### [facility] [address] [address] [address] Sigifredo Valdez DIAGNOSIS: Comment Normal [facility] Comment on above: Result Comment: NEGA TIVE FOR INTRAEPITHELIAL LESION OR MALIGNANCY. CELLULAR CHANGES ASSOCIATED WITH INFLAMMATION ARE PRESENT. Performed By: #### 4 [id number] #### [facility] [address] [address] [address] Sigifredo Valdez Methodology: CTIM Normal [facility] Comment on above: Result Comment: The Thin Prep(R) Asphalt Still Operator was unable to read this specimen. Therefore a manual review was performed. Performed By: #### 4 [id number] #### [facility] [address] [place] [address] Dr. Sigifredo Valdez Note: Comment [facility] Comment on above: Result Comment: The Pap smear is a screening test designed to aid in the detection of premalignant and malignant conditions of the uterine cervix. It is not a diagnostic procedure and should not be used as the sole means of detecting cervical cancer. Both false-positive and false-negative reports do occur. . Performed By: #### 4 [id number] #### [facility] [address] [place] [address] Dr. Sigifredo Valdez Performed by: Comment Normal [facility] Comment on above: Result Comment: Delia Shook, Battery Mechanic (ASCP) Performed By: #### 4 [id number] #### [facility] [address] [place] [address] Dr. Sigifredo Valdez Reflex Criteria: Comment Normal [facility] Comment on above: Result Comment: The HPV DNA reflex criteria were not met with this specimen result therefore, no HPV testing was performed. . Performed By: #### 4 [id number] #### [facility] [address] [place] [address] Dr. Sigifredo Valdez Specimen adequacy: Comment Normal [facility] Comment on above: Result Comment: Sati sfactory for evaluation. Endocervical and/or squamous metaplastic cells (endocervical component) are present. Performed By: #### 4 [id number] #### [facility] [address] [place] [address] Dr. Sigifredo Valdez Auth for Release of Medical Recordson 01-03-2021 Auth for Release of Medical Records [id number] #1.00CD:127 Normal [facility] Ambulatory Clinical Summaryo n 12-29-2020 Ambulatory Clinical Summary {[id number] [facility] Obstetrics Office/Clinic Not massiel 12-29-2020 Obstetrics Office/Clinic [...] Age: 32 weeks Wt: 2353 g Hospital: [place] [facility] Labor: -- Child's Name: -- Baby's [...] trimester) Ordered: Office Visit Level 4 Est 02155 NC 2. Obesity complicating , second trimester (O99.212: Obesity complicating , second trimester) Ordered: Office Visit Level 4 Est 24262 NC 3. Maternal care for low transverse scar from previous delivery (O34.211: Maternal care for low transverse scar from previous delivery) Ordered: Office Visit Level 4 Est 01976 NC 4. Hx of preeclampsia, prior , currently (O09.299: Supervision of with other poor reproductive or obstetric history, unspecified trimester) Ordered: Office Visit Level 4 Est 91103 NC 5. HSV infection (B00.9: Herpesviral infection, unspecified) Ordered: Office Visit Level 4 Est 25496 NC 6. 27 weeks gestation of (Z3A.27: 27 weeks gestation of ) Ordered: Office Visit Level 4 Est 83021 NC Follow-up With When Contact Information Ailyn ROCHE MD In [address] [place] [address]- Additional Instructions: Problem List/Past Medical [...] Protein Urine Dipstick: Negative (12/29/20 11:30:00) Normal [facility] Comment on above: Result Comment: Elec tronically [...] assisted vaginal delivery. ? There is a ygzxgi-lccg-mssrel risk that you will need a delivery. [...] given to (more content not included)... Normal [facility] Coding Summary.on 12-22-2020 Coding Summary. [id number] Gh0bWw+PGhlYWQ+PE1FV CWaH95rkHEkxC8ZK7rRA B3IGLHERWTHLL6URY9zf KX8KZxiS2OugdSc YvnruCTkCY30JWa8XVJ0 lGpuXScgzO3ijJMgE9u4 LsIoAJ57cH24TAvcWZHw CnL5ZxKggidsvRIk T9qoCiEucFKjOlv+PHRh YmxlIHdpZHRoPScxMDAl SpPjkDmpFI8rYy2zXCTy LWNvbGxhcHNlOiBj e1jwMDWvIWahLH1uoHge Y7TafOP8SGOdi1k6Hp49 dHI+AKSpLUK4fQsgYDai z419EmNaj2jbMKL5 fUUjNRmxQKG0R10zy9M3 QZDjIFBrOZX5hCY5fK6b gAgzjikrI3VcpNDhBmL9 AKQ8aPSydY5fxCdv rghkdK8fQit+X51OWR2I YVFGQR2ZVeo2G1OkFqhw dHI+UQ59DLDvFZ34bFRa uNBhc7rkbAh2VdEj UNPiYIU5tPikJVtyw8Aj HLXvM68bvQLul0V4RYQq dDtgkCQpClRsrYV6gZ5l AQvlbmotz8smafck Tuxos9mupx91qJ39Z02z HVxuCWHjEDZ3CTUuLOAn yMwrtp0jkI5jIh2+IDxj x7dfk6rwwIa1PaHr BZGuqqSniJqpGYF3n1Kf Ph59L1VblYoea1BmJap2 bi09rUWqa6I4zFV3RDfz AMKsoH7bSClcLlV3 UTThXlYccF06hFXuKXry Du0hpDwxjDbcJI3xYSUn dzinJXOnqT7mYYNkpOAt fOawWB4pLXQhfmyd x602OrYxCNU7CBBvhOLv K1CbeA1cOaUxXNYsURUy A2PnkZDaINwwR769EDia CqW2VLZheuSqT3Ec WPDxaAiwPyP5l0X2Dr0J r5RabvrxLTR7SXwyNQP5 LkG1MePxMgR1X7VbPtf2 EQMpaKcxLI3qJ4Yd VBBcbeenwesutDN5JJPg ALLuiI56uRHmKPjpJh0l k7C9a738QYJuEZPdeP78 Yc4zdNfwRDCukWBX mE9llrzof3flwpabEbPw MFOlHTg5WMh7LXEobPpu UyFzADK8OsW7SFS7rAVo zN9keJtxfyzdgL5e Oyc+F00okY5eLBN2POW4 abdrHBNcssYmNE46SM01 B6XpWtelhLSzyBM+PGRp ruQvaOioVF0jZmWy r1crm5OpQDpmI2UtYALf CZgtUxd3LDBzGCM9mWP9 dQ6yZTTiESglw8J2uSF8 J1LvkdLtnm7ti2tx SDDePJgsA69dgLDij7B1 EUWpeBK6YXRyuHpnToEu qL87Lda+RCYkeWgfb9Qd Enyhx6ktf2iviUe6 IjMwJSIgdmFsaWduPSJ0 j9BlDt74S73hUAmqSUOo BZBgQEDuORVazBvogm0r hZ3eOd8+PGNvbCB3 tAN3xU2uXDDiVeK6SNuj F980OyLtcQVnCbkgh2xb w3cptFf4YgNdBJZmfgGt eJslEIY1x2SmHj58 R58oBGpoFOXnTKEzVZKq XTBeeHpmsv6qxQ1lVq5+ WS0hn4blzg40pQ01sZD+ CJJrOEW2fXhqVNhm DQNbcG5tFLfbHnV5AFYh DzRlqE02jRAkSFppMy8c nKfgkCejSK0qRMOikuui t760WcZvg4apQWGq eIKwEAuaWSD3B81rq5Q1 VHCqNJHdZNL9wWG2pE1o bGlnbjogbGVmdDsgdmVy yYqdOGzpSKipU101 IHRvcDsnPlBhdGllbnQg NoSuXAe1J6VsJgb3YQDo sZfdVQ2myKBkHSedMz4q wXmpoNhgCW5bAKNi yjsrx979HaCry4bwXQDr dDGmMCxeARK5I52jx5K5 YYEaPNCiHRH6uMK4jQ8l bGlnbjogbGVmdDsg uuWhuUazWWnsXKfeX256 IHRvcDsnPkJpcnRoIERh dLI9DF96EJ36zZTlo9K7 nME0Y7YfDQIpuonc sejuvGV8WOOmLVZgbQ42 Cd6emVvlFr9nALGnIVC3 IZWsySIrU5VijV7dUrMs OKAlQIWeD5HghAEh MFftT306EVcsBuS7URIw sfYjM3GeFAJilWbhJgN0 f3Q0Qd8MP0T9RA87DS19 xTVfc5J9vEQ6V7Wh LBZjphafqodiqKD2QRYd RYVphH69Ry2swMbxHx2l SNRdFHQ5CVEtjKUcQ7Tw xP7mOyHoBJIoEDRg O3MmlFZlCLeeU639UNok EcR1NKDniaQpU0WtLHNm jRcgJwP1k1Y2Ze9NLEw7 NA13GP92qRIok5L3 dOB1P4CqUOChgkxavohg jDT0QOCnMCBovD42Li4y zWctLq3cVEBhDSA1YRKc dRGpG8FgdP0oKwZq LJBnMDIoY3FcaOHjDGdm B550TQlwHmB7ECPdmeEg G5DsSUFtfAjaIgP6t5Z6 Md6DABVrVP41VJG2 sWK8CD95BD78W3DhAwyk dGFibGU+PHRhYmxlIHdp ZHRoPScxMDAlJyBzdHls CU7uLn2fDZFmEYPi wUmivQPlByPvn5srLHJq YAjuTC5guHjiS1IjsDE9 MBQhv4f2Us21V55rD8Io dXA+NXYowND7nRV8 uS6jDwOfKzZ3MIjrT555 RgYoaAAmFmjuv4egy3cv nRe1KxQ3WDVarbUcbErj ZUT3k4MlJm25U20i IHdpZHRoPSIxNSUiIHZh vZqzxh1wwT5zLd9+PGNv dRX8rBK2tL8kOmUdJwK8 FWocR301XwHtyLEg Tttmt5afc1jkeSf2GrFo JECfyiYhaTsvCNF8z2Ig En59Q2ZlaEyne2PzNrv6 ep94aBMfw9B6vUI3 K2IvPBWoatdcsWVozWaq OH9kFWVxnehoVAVxkX4a FNKiD5w8TyZjSiO4DWgi I6FwwnO0XDLjtWXn UGtrYBN3J34ap9M3NZMl UFXiDBN6iBB8dD4pfNni bjogbGVmdDsgdmVydGlj YXadXFxeZ545TIJo nHzxQEQofS8xIPEmaYXi eIsiVG9tIANotxofZwpU RlUBZExlYX2ON6CDKXH7 X4XxKpk9KGPzmTtg RS4xrEFrTRlbPf9snAtc sNyvVS7iMJPsjcvmQDUl dC7lQSYdsKDeaOdrEF0l KRHukecvp768WsSb SJF5ZDArpNStL7TcpS7m GtMyHVDwTCDxY9ParFUg GDczQ388YLxkFuP4WYWh qvMkX0NhTFVvgLth ZtO8g2W2Mj4tXJ9dPm3n HNi1LS59HI45rLBxu3M4 aZH9T9VrNVPehpdbzzcl pCI9GSYqUTNfqQ39 iJPfKTzcHz8xn0M9t672 JUXmXVDzeB88Mh0thSot MRFquTJJkU4xmntbz6gg cjogIzAwMDAwMDt0 TCb2IDQouPsgUwYzZZQ8 PwC0MUF7qDWwsB4duDmt xjomtY2bBry+MjUgWWVh bwL6H7KdMzt9SKGa aTzsBC7rxYTxQElgFo1c aNapaCgtJX4yWDLaucwa WBUyzC8sYOIewFUodQet MD5eGBIcfzeuq491 OhNtDPS3TWJaoBLyR1Zk lW1gWaDjTCCfLWWlD5Mt xVDpWTsnZ738IXugCqT6 LPTgyiEzX1NlRMUs nDoyNrG5n2A4Kg1FII4h yKE4W5KiGmn1RQZicDjp ZV2lpPBpSPphWd6hoWmz dQptWT7tKGRvqoli YIFpfG4qKMDjkUKkhNej IR3pIJSiiruth177WwEv GVN9OVVqxOIpV1SxsL4f DdNfTWRkNXWqK3Gy nQGsBEfuF828XEjaExL0 BFJsqlRvX5RzKTBsxRqz CvH6j0V5En3YhOQvFLHq TJ88MP26TT96B6Gs PjwvdGFibGU+PHRhYmxl IHdpZHRoPScxMDAlJyBz vRgdKY7bDx0kMCYaAPFj pUwlnUEoJkJek2ag SUYbPWiwNN1huWmnI8Yu vVE6NOCxc6q5Is35H35v K8ItdCP+GHYplHQ5xEP4 eH3eGvIbIgR9ADea K828UcVmcDOoBsolu0oy d1yqcOf3OfRoCZVyatDb pWyhJVH1p4QeJb43V72z IHdpZHRoPSIyMCUi NIYhjXrkcu6ivZ8sDc3+ UAKpfSZ5rZH3tO6lNfZp BgZ9VXtmY668OfOssHSg VsacP82sF3QsoHE+ JTZaJln9FMXyqFydZB2b cMKpLQhlMh4zMBW9YkWn TnWuFLhiJ5AjGTStmvzi trkhxMQ2IEYnRKUa dI46Dm0mjIqoZk3vASQs GMD8IXPopVQzB5LxcI5g HvPiNQOnCUXqX4EmsFUg IKvfK647ZIrdOpM6 QQHmtoPvE9YsIHAqlLfv EkV0i6P7Ad2UdRagiUEk DY8ySbEzQVe0C7FdFkf5 ETYegTaoVC9kkRNd VVxoKy2frJbhrRjyJW0k VKIkuolmq784RbIcg3sz JEWokHVjSWpeQOK2Z61y i1Q6NPJgWZYrYTX9 mLX2qJ3edVoocsovzGWr dDsgdmVydGljYWwtYWxp O635VDHitGfcKfCBHed5 T4OlKtd9NJPmsLji JZ2poOWzDAnsNr9tdNfz iYbiNY9uWTNhvvewl944 WxQvl6jiSOVctWKhYTtr YQZ0B25ds1W0QQAx QKHzSHH6fDA4dX0urKbu bjogbGVmdDsgdmVydGlj NKfaDSozR296UCLoyDoh Ff4OVfw9B4EbWch0 STNgkSweGH8txZZgUCyh Al8spTkpgOaqUS5wMTKd nmvnc594SrNiu2ukDCGq wBXiSAccCXO8D42q m5H7EAOqVENxNJD0cCB7 fX7nmOpgqlzoiXFvkKlu rkZjoKdeEXvcAFqtU390 IHRvcDsnPlBheWVy OjwvdGQ+YU30py50E6Hs EnckUnn3MBLuETR2kWL9 vH2nQEPwQZgsb5F1fFA7 W1QdzzAcnt7vn2rf YXBz (more content not included)... Normal [facility] - Clinical Noteon Retail - Clinical Note [id number] #1.00CD:127 Normal [facility] ABO/Rhon 12-10-2020 ABO/Rh AB POS Invalid Interpretation Code [facility] Comment on above: Performed By: #### 1 [id number] ####[facility] [address] [place] [address] ABSCon 12-10-2020 ABSC Gel Interp Negative Normal [facility] Comment on above: Performed By: #### 1 [id number], [id number] ####[address] [place] [address] CBC w/Indiceson 12-10-2020 Erythrocyte distribution width (RBC) [Ratio] 13.0 % Normal 10.9-14.2 [facility] Comment on above: Performed By: #### 3 [id number], [id number] ####[address] [address] Hematocrit (Bld) [Volume fraction] 35.6 % Normal 34.0-46.0 [facility] Comment on above: Performed By: #### 3 [id number], [id number] ####[address] [address] Hemoglobin (Bld) [Mass/Vol] 12.0 g/dL Normal 12.0-16.0 [facility] Comment on above: Performed By: #### 3 [id number], [id number] ####[address] [address] MCH (RBC) [Entitic mass] 29.3 pg Normal 27.0-34.0 [facility] Comment on above: Performed By: #### 3 [id number], [id number] ####[address] [address] MCHC (RBC) [Mass/Vol] 33.8 g/dL Normal 31.4-36.0 [facility] Comment on above: Performed By: #### 3 [id number], [id number] ####[address] [address] MCV (RBC) [Entitic vol] 86.6 fL Normal 80.0-100.0 [facility] Comment on above: Performed By: #### 3 [id number], [id number] ####[address] [address] Platelet mean volume (Bld) [Entitic vol] 7.7 fL Normal 6.4-10.8 [facility] Comment on above: Performed By: #### 3 [id number], [id number] ####[facility] [address] [place] [address] Platelets (Bld) [#/Vol] 333.0 E9/L Normal 150.0-500.0 [facility] Comment on above: Performed By: #### 3 [id number], [id number] ####[facility] [address] [place] [address] RBC (Bld) [#/Vol] 4.1 E12/L Low 4.3-5.9 [facility] Comment on above: Performed By: #### 3 [id number], [id number] ####[facility] [address] [place] [address] WBC corrected for nucl RBC Auto (Bld) [#/Vol] 10.4 E9/L Normal 4.0-11.0 [facility] Comment on above: Performed By: #### 3 [id number], [id number] ####[facility] [address] [place] [address] Consent for Treatmenton Consent for Treatment [id number] #1.00CD:127 Normal [facility] Gest Scr Glu 1 Hron 12-10- 21 Glucose [Mass/Vol] 133 mg/dL Normal 55-140 [facility] Comment on above: Result Comment: Posi tive Screen =1 HR > 140mg/dL Performed By: #### 3 [id number], [id number] ####[facility] [address] [place] [address] Ambulatory Clinical Summaryo n 11-30-2020 Ambulatory Clinical Summary {[id number]}CD:047480 Normal [facility] Obstetrics Office/Clinic Not massiel 11-30-2020 Obstetrics Office/Clinic [...] Age: 32 weeks Wt: 2353 g Hospital: [place] [facility] Labor: -- Child's Name: -- Baby's [...] sugars. Ordered: Office Visit Level 3 Est 40307 NC 2. Supervision of high risk in second trimester (O09.92: Supervision of high risk , unspecified, second trimester) Follow up in 4 weeks for visit. 28 wk labs ordered for pt to have done after she is 24 wks. Ordered: ABO/Rh Antibody Screen CBC w/ Indices Gestational Screen Glucose 1 Hour Office Visit Level 3 Est 48276 NC 3. 23 weeks gestation of (Z3A.23: 23 weeks gestation of ) Ordered: Office Visit Level 3 Est 88731 NC 4. Hx of preeclampsia, prior , currently (O09.299: Supervision of with other poor reproductive or obstetric history, unspecified trimester) Taking baby ASA. Ordered: Office Visit Level 3 Est 29848 NC 5. Maternal care for low transverse scar from previous delivery (O34.211: Maternal care for low transverse scar from previous delivery) Plan for repeat @ 39 wks. Ordered: Office Visit Level 3 Est 79551 NC 6. 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 Ordered: Office Visit Level 3 Est 15329 NC Follow-up With When Contact Information [facility] In [address] [place] [address]- Additional Instructions: Problem List/Pas (more content not included)... Normal [facility] Comment on above: Result Comment: Elec tronically [...] including vitamins, herbs, eye drops, creams, and knvu-isr-detmmcd medicines. ? Any blood disorders you have. [...] This inform (more content not included)... Normal [facility] US After 1st Trime steron 11-01-2020 US [...] Extremities Normal Diaphragm Normal ACI Normal Normal [facility] Ambulatory Clinical Summaryo n 10-31-2020 Ambulatory Clinical Summary {[id number]}CD:246692 Normal [facility] Ambulatory Clinical Summary {[id number]}CD:259294 Normal [facility] Obstetrics Office/Clinic Not massiel 10-31-2020 Obstetrics Office/Clinic [...] Age: 32 weeks Wt: 2353 g Hospital: [facility] Labor: -- Child's Name: -- Baby's [...] trimester) Ordered: Office Visit Level 4 Est 68126 NC 2. Obesity complicating , second trimester (O99.212: Obesity complicating , second trimester) Ordered: Office Visit Level 4 Est 35610 NC 3. Maternal care for low transverse scar from previous delivery (O34.211: Maternal care for low transverse scar from previous delivery) Ordered: Office Visit Level 4 Est 48230 NC 4. Hx of preeclampsia, prior , currently (O09.299: Supervision of with other poor reproductive or obstetric history, unspecified trimester) Ordered: Office Visit Level 4 Est 26592 NC 5. 19 weeks gestation of (Z3A.19: 19 weeks gestation of ) Ordered: Office Visit Level 4 Est 01628 NC 6. HSV infection (B00.9: Herpesviral infection, unspecified) Ordered: Office Visit Level 4 Est 97592 NC Follow-up With When Contact Information Ailyn ROCHE MD In [address] [place] [address]- Additional Instructions: Problem List/Past Medical [...] 15:48:00) Protein (more content not included)... Normal [facility] Comment on above: Result Comment: Elec tronically [...] keep your urine pale yellow. ? Take jthz-prr-blileea and prescription medicines only as told by [...] 07/22/2006 Document Revised: 11/09/2019 Document Reviewed: 10/24/2017 [employer] Patient Education ? 2019 [employer]. Eating Plan for Women While you are [...] if you (more content not included)... Normal [facility] Obstetrics Office/Clinic Not massiel 10-03-2020 Obstetrics Office/Clinic [...] Age: 32 weeks Wt: 2353 g Hospital: [facility] Labor: -- Child's Name: -- Baby's [...] is transferring care to our office from [place]. Her nausea mostly went away, just puking once in the mornings. She has been getting headaches almost every day, tylenol helping. LMP unsure. Not on contraception at time of conception, no bleeding since LMP. She had NIPT testing done with negative results. Hx c/s at 32 weeks in [place] for severe preeclampsia. She is taking baby [...] week. Ordered: Office Visit Level 3 Est 77814 2. Supervision of high risk in second trimester (O09.92: Supervision of high risk , unspecified, second trimester) Follow up in 5 weeks for anatomy US and appt with Dr. Roche. Ordered: Office Visit Level 3 Est 31318 After 1st Trimester 3. 15 weeks gestation of (Z3A.15: 15 weeks gestation of ) Ordered: Office Visit Level 3 Est 24851 4. Hx of preeclampsia, prior , currently (O09.299: Supervision of with other poor reproductive or obstetric history, unspecified trimester) Continue with baby ASA. Ordered: Office Visit Level 3 Est 89400 5. Maternal care for low transverse scar from previous delivery (O34.211: (more content not included)... Normal [facility] Comment on above: Result Comment: Elec tronically [...] that are (more content not included)... Normal [facility] Transfer Inon 10-03-2020 Transfer In [id number] #1.00CD:127 Normal [facility] Vital Signs Date Time Vital Sign Value Performing Clinician Facility 08-18-2022 10:10-0500 Body height 165.1 cm Ban Ontiveros Other [facility] Other 08-18-2022 10:10-0500 Body mass index (BMI) [Ratio] 30.78 kg/m2 Ban Ontiveros Other [facility] Other 08-18-2022 10:10-0500 Body temperature 97.8 [degF] Ban Ontiveros Other [facility] Other 08-18-2022 10:10-0500 Body weight 83.92 kg Ban Ontiveros Other [facility] Other 08-18-2022 10:10-0500 Respiratory rate 18 /min Ban Ontiveros Other [facility] Other 08-18-2022 10:10-0500 SaO2% (BldA) [Mass fraction] 98 % Ban Ontiveros Other [facility] Other Encounters Encounter Date Encounter Type Care Provider Facility Start: 07-10-2024 End: 07-10-2024 Clinisync Result Encounter Jose Angel Cash DO Work Phone: [facility] Unsolicited Start: 07-10-2024 End: 07-10-2024 [facility] Result Encounter Jose Angel Cash DO Work Phone: [facility] Unsolicited Start: 03-23-2024 End: 03-23-2024 ambulatory ASHU NO Not Available Start: 12-18-2023 End: 12-18-2023 ambulatory JOSE ANGEL MORTENSEN Not Available Start: 09-08-2022 End: 09-09-[address] MIKAL BAIN Facility:[facility] Start: 08-18-2022 End: 08-18-2022 ambulatory Ban Ontiveros Other [facility] Other Start: 08-18-2022 Office outpatient ne w 30 minutes Ban Ontiveros [facility] Start: 04-19-2022 End: 04-20-[address] JOSE ANGEL MORTENSEN Facility:[facility] Start: 10-20-2021 End: 10-21-[address] JOSE ANGEL MORTENSEN Facility:[facility] Start: 10-09-2021 End: 10-09-[address] JOSE ANGEL MORTENSEN Facility:[facility] Start: 01-25-2017 End: 01-28-2017 Evaluation and management of inpatient [facility] Procedures Date Procedure Procedure Detail Performing Clinician Start: 07-10-2024 [facility] PREG QUANT HCG Core y Cash DO Work Phone: Payers Date Payer Category Payer Private Health Insurance [facility] MEDICAID [id number] 1995 Unknown [id number] 1995 Unknown [id number] 593 1995 Unknown [id number] 593 1995 Unknown [id number] 593 1995 Unknown [id number] 1259 1995 Unknown [id number] 1259 1959 Unknown [id number] 1959 Unknown [id number] 1959 Unknown [id number] Social History Date Type Detail Facility Start: 12-18-2023 Sex Assigned At [facility] Other Start: 02-26-2023 Tobacco smoking status [facility] Never smoked tobacco [facility] Start: 02-26-2023 [...] in office today may be related to [place]. Take medications as directed. Saltwater gargles may help with pain and disrupts bacteria and viral infections. Continue tylenol/ibu for general discomfort. Encourage fluids. Symptoms should improve within the next 4-7 days. [facility] Other History general Narrative - Reported Note Date & Type Note Facility History general Narrative - Reported Type Surgical History C section [facility] Other Summary Purpose Family History No Family History Records FoundNo Family History Records FoundNo Family History Records FoundNo Family History Records Found Advance Directives No Advanced Directives Records FoundNo Advanced Directives Records FoundNo Advanced Directives Records FoundNo Advanced Directives Records Found Additional Source Comments INFORMATION SOURCE (unrecogn ized section and content) DATE CREATED AUTHOR 01/29/2018 [facility] DATE CREATED AUTHOR AUTHOR'S ORGANIZ ATION 01/03/2021 Jacques Windham [facility] DATE CREATED AUTHOR AUTHOR'S ORGANIZ ATION 09/13/2022 [facility] DATE CREATED AUTHOR AUTHOR'S ORGANIZ ATION 03/23/2024 [facility] EPIC REASON FOR VISIT (unrecogniz ed section and content) SORE THROAT, NASAL CONGESTIO N Care Teams (unrecognized sec tion and content) 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 [facility] [facility]. provides no warranty or guarantee of the accuracy or completeness of information in this document.
[2024-09-05 19:21] VITALS: BP 122/77; PULSE 95; TEMP 37.8; O2SAT 95
--- NOTE | 2024-09-05 19:28 | XR_ITS ---
The [address] [address] Patient Name: ROBER VILLALPANDO MRN: [id number] date: 1995 Sex: F Assigned Patient Location: ER Current Patient Location: ER Accession/Order Number: [id number] Exam Date: 09/05/2024 19:35 Report Date: 09/05/2024 19:51 At the request of: AUSTEN GARCIA Procedure: XR chest 2V EXAMINATION: XR chest 2V HISTORY: cough, fever COMPARISON: No relevant comparison available. FINDINGS: LUNGS: Dense patchy and confluent opacities within the mid and lower right lung. Left lung is clear. VASCULATURE: No increased pulmonary vasculature. PLEURA: No pneumothorax, effusion, or pleural thickening. CARDIAC: No cardiomegaly or cardiac silhouette abnormality. MEDIASTINUM: No visible mass or adenopathy. BONES: No fracture or visible bone lesion. OTHER: Negative. XR/XR chest 2V IMPRESSION: 1. Moderate infiltrates within mid and lower right lung favoring pneumonia. Electronically authenticated by: JITENDRA OLIVEROS Date: 09/05/2024 19:51
--- NOTE | 2024-09-05 19:30 | ED_ITS ---
HPI - URI/Sore Throat General Chief Complaint: Upper Respiratory Infection Stated Complaint: Flu Symptoms Time Seen by Provider: 09/05/24 19:18 Source: patient Limitations: no limitations History of Present Illness HPI Narrative: Patient is a 28-year-old female presents to the ER with concerns of fever cough and congestion patient notes today she has had some slight shortness of breath with activity she denies any pain or discomfort she reports symptoms present for the past 8 days previous ER visit on September 01 was negative for COVID and influenza. Patient states symptoms have continued since then but cough is becoming more productive. She appears in no distress and states she has been taking Tylenol cold and flu frequently to help with body ache and fever. Any recent long travels flights or surgeries she denies any smoking history she denies any hormone use or control she denies any personal or family history of PE or DVT. MD elicited complaint: Reports fever, cough and nasal congestion Onset (ago): day(s) (8) Consistency: Reports constant Severity: mild Description of mucous: Reports clear Able to tolerate fluids by mouth: Yes Exacerbating factors: Reports nothing Relieving factors: Reports nothing Context: Denies sick contacts Associated symptoms: Reports fever, nasal congestion, cough and shortness of breath; Denies stiff neck Treatments prior to arrival: Reports acetaminophen Related Data Home Medications ?Medication ?Instructions ?Recorded ?Confirmed metformin 500 mg tablet 500 mg PO DAILY 09/01/24 09/01/24 Previous Rx's ?Medication ?Instructions ?Recorded amoxicillin 500 mg tablet 1,000 mg (2 x 500 mg) PO Q8H 10 09/05/24 days #60 tabs azithromycin 250 mg tablet 250 mg PO DAILY 4 days #4 tabs 09/05/24 (Zithromax) benzonatate 200 mg capsule 200 mg PO TID PRN cough 3 days #9 09/05/24 caps Allergies Allergy/AdvReac Type Severity Reaction Status Date / Time No Known Drug Allergies Allergy Verified 09/01/24 09:35 Review of Systems ROS Constitutional Reports: fever; Denies: chills Eyes Denies: change in vision Ears, nose, mouth, and throat Denies: throat pain, neck pain or throat swelling Cardiovascular Denies: chest pain, palpitations or swelling of feet/ankles Respiratory Reports: shortness of breath and cough; Denies: wheezing, stridor or pain on inspiration Gastrointestinal Denies: abdominal pain, nausea or vomiting Genitourinary Denies: painful urination or urinary frequency Musculoskeletal Denies: back pain, neck pain or extremity pain Integumentary/Breast Denies: rash, itching or redness Neurological Denies: headache Psychiatric Denies: anxiety Endocrine Denies: excessive urination Hematologic/Lymphatic Denies: easy bruising PFSH PFSH Social History Little interest or pleasure in doing things: not at all Feeling down, depressed, or hopeless: not at all Exam Narrative Exam Narrative: Nurses notes and vital signs reviewed and patient is not hypoxic. General: The patient appears well and in no apparent distress. Patient is resting comfortably on cart. Skin: Warm, dry, no pallor noted. Head: Normocephalic, atraumatic Neck: Supple, trachea mid-line, no tenderness, no lymphadenopathy Eye: Pupils are equal, round and reactive to light, EOMI Ears, Nose, Mouth, and Throat: TM are clear, normal light reflex, oral mucosa is moist, no posterior oropharynx erythema or hypertrophy, uvula is mid-line Cardiovascular: Regular Rate and Rhythm Respiratory: Patient is in no distress, no accessory muscle use, lungs are clear to auscultation however diminished in right base, no wheezing, rales or rhonchi. Chest Wall: no tenderness Back: non-tender, no CVA tenderness Musculoskeletal: normal ROM, no tenderness, no swelling, negative Homans' sign bilaterally GI: Normal bowel sounds, no tenderness to palpation, no masses appreciated. No rebound, guarding, or rigidity noted. Neurological: A&O x4 Psychiatric: Cooperative Constitutional Vital Signs, click to edit/add: Last Vital Signs Temp 100.1 F 09/05/24 19:44 Pulse 83 09/05/24 19:57 Resp 18 09/05/24 19:57 BP 122/77 09/05/24 19:21 Pulse Ox 96 09/05/24 19:57 O2 Del Method Room Air 09/05/24 19:57 Course Vital Signs Vital signs: Vital Signs Temperature 99.8 F 09/05/24 18:53 Pulse Rate 91 H 09/05/24 18:53 Respiratory Rate 18 09/05/24 18:53 Blood Pressure 120/74 09/05/24 18:53 Pulse Oximetry 95 09/05/24 18:53 Oxygen Delivery Method Room Air 09/05/24 18:53 Temperature 100.1 F 09/05/24 19:44 Pulse Rate 83 09/05/24 19:57 Respiratory Rate 18 09/05/24 19:57 Blood Pressure 122/77 09/05/24 19:21 Pulse Oximetry 96 09/05/24 19:57 Oxygen Delivery Method Room Air 09/05/24 19:57 MDM - URI/Sore Throat MDM Narrative Medical decision making narrative: Patient presents with increase in cough and continued fever exam and history concerning for possible pneumonia patient agreeable to chest x-ray and breathing treatment. She is given Motrin for fever. Vital stable patient is not hypoxic. Chest x-ray consistent with clinical picture right middle and lower lobe pneumonia. Patient without any significant comorbidities or risk factors we will treat her outpatient with amoxicillin and Zithromax recommend close follow-up to family doctor for reevaluation. Should her symptoms worsen or new symptoms develop she is to return to the ER for reevaluation specifically discussed increased in shortness of breath or chest pain. Patient will continue with Tylenol and Motrin for fever control. Recommend probiotics such as yogurt for side effect mitigation with antibiotic use. Patient easily tolerated her oral antibiotics we recommend rest and p.o. 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 She was ambulated here with pulse oximetry and remained at 95% she is agreeable to return to the ER if any of her symptoms worsen for reevaluation and possible admission she would like to try outpatient treatment with oral antibiotics as discussed and the i mportance of completing the antibiotics was discussed along with taking it with yogurt or food to limit or mitigate any unwanted side effects. The patient is to followup with primary care physician in next 2-3 days or to return to the emergency department should any of the signs or symptoms worsen or new symptoms develop. Patient had questions answered. The patient agrees with the following Diagnosis and Treatment plan and the patient will be discharged home. Imaging Data Chest x-ray: Attestation: I have reviewed the pertinent imaging results. Radiologist's impression: ITS Impressions Chest X-Ray 09/05/24 19:28 IMPRESSION: 1. Moderate infiltrates within mid and lower right lung favoring pneumonia. Electronically authenticated by: JITENDRA OLIVEROS Date: 09/05/2024 19:51 Discharge Plan Discharge Chief Complaint: Upper Respiratory Infection Clinical Impression: Community acquired pneumonia Patient Disposition: Home, Self-Care Time of Disposition Decision: 19:58 Condition: Good Prescriptions / Home Meds: New amoxicillin 500 mg tablet 1,000 mg PO Q8H 10 Days Qty: 60 0RF Rx Instructions: take with food/ yogurt azithromycin [Zithromax] 250 mg tablet 250 mg PO DAILY 4 Days Qty: 4 0RF benzonatate 200 mg capsule 200 mg PO TID PRN (Reason: cough) 3 Days Qty: 9 0RF No Action metformin 500 mg tablet 500 mg PO DAILY Print Language: Barbadian Instructions: Community Acquired Pneumonia (ED) Additional Instructions: Take amoxicillin and zithromax as prescribed Follow up to pcp in 2-3 days for recheck of symptoms If symptoms worsen, return to ER for re-evaluation. Referrals: Aris Niño MD [Physician] - As soon as possible Discharge Date/Time: 09/05/24 20:18
[2024-09-05 19:44] VITALS: TEMP 37.8
[2024-09-05] MEDS: IBUPROFEN 600 MG TABLET PO (19:44)
[2024-09-05 19:57] VITALS: PULSE 83; O2SAT 96
[2024-09-05] MEDS: IPRATROPIUM/ALBUTEROL SULFATE 3 ML AMPUL.NEB IH (19:57)
[2024-09-05] MEDS: AMOXICILLIN 500 MG CAPSULE 1000 MG PO (20:06)
[2024-09-05] MEDS: AZITHROMYCIN 250 MG TABLET 500 MG PO (20:06)
== END 2024-09-05 20:18 | disposition home or self-care (01) ==
PROVIDERS: Emergency Provider Emergency Medicine
DX: J18.9 Pneumonia, unspecified organism (principal); R50.9 Fever, unspecified
CPT/HCPCS: 71046; 94640; 99284

== ENCOUNTER 2025-02-22 15:56 | Outpatient (REF) | payer OTHER, SELFPAY ==
--- OUTSIDE RECORDS SUMMARY | 2025-02-22 15:58 | XMS_ITS | Clinical Summary ---
Author Organization [facility] Address [address] [place] [address] Phone Care Team Providers Care Optical Sales Associate Name Role Phone Unavailable Primary Care Provider Unavailabl e Social History Tobacco Use Types Packs/Day Years Used Date Smoking Tobacco: Never Assessed Comments Unknown Sex and Gender Information Value Date Recorded Sex Assigned at Not on file Legal Sex Female 2:39 PM EST Gender Identity Not on file Sexual Orientation Not on file Plan of Treatment Not on file
[2025-02-25 10:08] LABS: Age Gdln ACOG Testing Note (.); IGP, rfx Aptima HPV ASCU Note (.)
== END 2025-02-22 15:57 | disposition home or self-care (01) ==
LOC: LAB 15:56
PROVIDERS: Visit Provider Obstetrics & Gynecology
DX: Z01.419 Encounter for gynecological examination (general) (routine) without abnormal findings (principal)
CPT/HCPCS: 88175